=== PATIENT | female | born 1970 | race American Indian/Alaskan Native ===

== ENCOUNTER 2017-10-03 12:35 | Inpatient (IN) | payer BC ==
--- NOTE | 2017-10-03 13:56 | ED PDOC ---
Arrival/HPI - General Time Seen by Provider: 10/03/17 13:39 Historian: Patient - History of Present Illness Narrative History of Present Illness (Text): 10/03/17 13:53 A 46 year old female, whose past medical history includes lymphoma, last chemo session 1 week ago today, presents to the emergency department complaining of a fever since last night. Patient reports a temperature of 100.7. She notes speaking with her oncologist, who instructed her to come in for further evaluation. Patient notes a mild sore throat but denies any nausea, vomiting, abdominal pain, urinary symptoms, chest pain, shortness of breath, cough, congestion, rhinorrhea, rash or any other complaints. Patient denies any recent travel. Time/Duration: Other (last night) Context: Home Associated Symptoms (Text): 10/03/17 14:33 History of lymphoma with last chemotherapy one week ago today. The patient did receive Neupogen last week. Complains of a mild sore throat and a fever to 100.7 since last night. No cough congestion or URI. No abdominal pain nausea vomiting. No genitourinary symptoms. No rash. No travel or exposure. She spoke with her oncologist who directed her to the emergency department. Past Medical History - Provider Review Nursing Documentation Reviewed: Yes - Tetanus Immunization Tetanus Immunization: Unknown - Cardiac Hx Hypertension: Yes - Pulmonary Hx Asthma: Yes - Psychiatric Hx Depression: No Hx Emotional Abuse: No Hx Physical Abuse: No Hx Substance Use: No - Past Surgical History Past Surgical History: No Previous - Suicidal Assessment Feels Threatened In Home Enviroment: No Family/Social History - Physician Review Nursing Documentation Reviewed: Yes Family/Social History: No Known Family HX Smoking Status: Never Smoked Hx Alcohol Use: Yes Frequency of alcohol use: Socially Hx Substance Use: No Hx Substance Use Treatment: No Allergies/Home Meds Allergies/Adverse Reactions: Allergies shellfish derived Allergy (Verified 10/03/17 14:08) ANAPHYLAXIS Home Medications: Home Meds Medication Instructions Recorded Confirmed Valsartan [Valsartan] 1 tab PO DAILY 10/03/17 10/03/17 metFORMIN 500 mg PO DAILY 10/03/17 10/03/17 Review of Systems - Physician Review All systems were reviewed & negative as marked: Yes - Review of Systems Constitutional: Fevers ENT: Sore Throat. absent: Rhinorrhea, Sinus Congestion Respiratory: absent: SOB, Cough Cardiovascular: absent: Chest Pain Gastrointestinal: absent: Abdominal Pain, Nausea, Vomiting Genitourinary Female: absent: Dysuria, Frequency, Hematuria Skin: absent: Rash Physical Exam Vital Signs Temp Pulse Resp BP Pulse Ox 10/03/17 16:00 102 H 18 135/82 100 10/03/17 14:12 99.4 F 115 H 19 138/99 H 100 Appearance: Positive for: Well-Appearing, Non-Toxic, Comfortable Pain Distress: None Mental Status: Positive for: Alert and Oriented X 3 - Systems Exam Head: Present: Atraumatic, Normocephalic Pupils: Present: PERRL Extroacular Muscles: Present: EOMI Conjunctiva: Present: Normal Mouth: Present: Moist Mucous Membranes Pharnyx: Present: Other (mild pharyngeal injection) Neck: Present: Normal Range of Motion Respiratory/Chest: Present: Clear to Auscultation, Good Air Exchange. No: Respiratory Distress, Accessory Muscle Use Cardiovascular: Present: Regular Rate and Rhythm, Normal S1, S2, Tachycardic. No: Murmurs Abdomen: No: Tenderness, Distention, Peritoneal Signs Back: Present: Normal Inspection Upper Extremity: Present: Normal Inspection. No: Cyanosis, Edema Lower Extremity: Present: Normal Inspection. No: Edema Neurological: Present: GCS=15, CN II-XII Intact, Speech Normal Skin: Present: Warm, Dry, Normal Color. No: Rashes Psychiatric: Present: Alert, Oriented x 3, Normal Insight, Normal Concentration Medical Decision Making ED Course and Treatment: 10/03/17 13:53 Impression: A 46 year old female with a fever and mild sore throat. Plan: -- Chest xray -- EKG -- Labs -- Blood and Urine culture -- Urinalysis -- Reassess and disposition Progress Notes: 10/03/17 15:24 Chest one view shows no infiltrate effusion or cardiomegaly. 10/03/17 15:57 EKG shows sinus tachycardia rate approximately 110 with nonspecific T-wave changes and no acute changes. 10/03/17 18:24 Dr Knight requests hospitalist admit. Discussed with , who accepts to her service. - Lab Interpretations Lab Results: 10/03/17 16:00 10/03/17 16:00 Lab Results 10/03/17 16:00: Sodium 140, Chloride 99, Potassium 3.6, Carbon Dioxide 29, Anion Gap 15, BUN 15, Creatinine 0.8, Est GFR ( Amer) > 60, Est GFR (Non- Af Amer) > 60, Random Glucose 103, Calcium 8.9, Phosphorus 4.2, Magnesium 1.8, Total Bilirubin 1.2, AST 22, ALT 17, Alkaline Phosphatase 67, Total Protein 7.6 , Albumin 3.9, Globulin 3.6, Albumin/Globulin Ratio 1.1 10/03/17 16:00: pO2 35, VBG pH 7.40, VBG pCO2 47.0, VBG HCO3 29.1 H, VBG Total CO2 30.5 H, VBG O2 Sat (Calc) 71.1 H, VBG Base Excess 3.5 H, VBG Potassium 3.4 L , Sodium 135.0, Chloride 100.0, Glucose 107 H, Lactate 1.1, FiO2 21.0, Venous Blood Potassium 3.4 L 10/03/17 16:00: WBC 0.3 L* D, RBC 3.88, Hgb 10.1 L, Hct 30.6 L, MCV 78.9 L, MCH 26.0, MCHC 33.0, RDW 14.1, Plt Count 180, MPV 10.4, Gran % 4.0 L, Lymph % (Auto ) 44.0 H, Dunn % (Auto) 24.0 H, Eos % (Auto) 28.0 H, Baso % (Auto) 0.0, Gran # 0.01 L, Lymph # (Auto) 0.1 L, Dunn # (Auto) 0.1, Eos # (Auto) 0.1, Baso # (Auto ) 0.00, Corrected WBC (Man) Cancelled, Neutrophils % (Manual) Cancelled, Band Neutrophils % Cancelled, Lymphocytes % (Manual) Cancelled, Atypical Lymphs % Cancelled, Monocytes % (Manual) Cancelled, Eosinophils % (Manual) Cancelled, Basophils % (Manual) Cancelled, Metamyelocytes % Cancelled, Myelocytes % Cancelled, Promyelocytes % Cancelled, Nucleated RBC % Cancelled, Hypersegmented Polys Cancelled, Immature Lymphocytes Cancelled, Blast Cells Cancelled, Smudge Cells Cancelled, Toxic Granulation Cancelled, Dohle Bodies Cancelled, Amor Rods Cancelled, Platelet Evaluation Cancelled, Plt Clumps, EDTA Cancelled, Large Platelets Cancelled, Giant Platelets Cancelled, Polychromasia Cancelled, Hypochromasia Cancelled, Hyperchromasia Cancelled, Poikilocytosis (manual Cancelled, Basophilic Stippling Cancelled, Anisocytosis (manual) Cancelled, Microcytosis (manual) Cancelled, Macrocytosis (manual) Cancelled, Spherocytes Cancelled, Sickle Cells Cancelled, Target Cells Cancelled, Tear Drop Cells Cancelled, Ovalocytes Cancelled, Stomatocytes Cancelled, Helmet Cells Cancelled , [place] Rings Cancelled, [place] Cells Cancelled, Acanthocytes (Spur) Cancelled, Rouleaux Cancelled, Schistocytes Cancelled 10/03/17 15:18: Grp A Beta Strep Ag Negative 10/03/17 15:00: Urine Color Yellow, Urine Appearance Clear, Urine pH 6.0, Ur Specific [place] >= 1.030, Urine Protein >=300 H, Urine Glucose (UA) Negative, Urine Ketones Negative, Urine Blood Negative, Urine Nitrate Negative, Urine Bilirubin Negative, Urine Urobilinogen 1.0 H, Ur Leukocyte Esterase Negative, Urine RBC 0 - 2, Urine WBC 0 - 2, Ur Epithelial Cells 3 - 4, Urine Bacteria Mod I have reviewed the lab results: Yes - RAD Interpretation Radiology Orders: 10/03/17 14:34 CHEST PORTABLE [RAD] Stat - Medication Orders Current Medication Orders: Vancomycin HCl (Vancomycin 1gm) 1 gm in 250 mls @ 167 mls/hr IVPB STAT STA PRN Reason: Protocol Stop: 10/03/17 19:02 Discontinued Medications Piperacillin Sod/Tazobactam Sod (Zosyn 4.5 Gm In Ns 100ml) 4.5 gm in 100 mls @ 200 mls/hr IVPB STAT STA PRN Reason: Protocol Stop: 10/03/17 18:02 - Scribe Statement The provider has reviewed the documentation as recorded by the Christina Epstein Provider Scribe Attestation: All medical record entries made by the Scribe were at my direction and personally dictated by me. I have reviewed the chart and agree that the record accurately reflects my personal performance of the history, physical exam, medical decision making, and the department course for this patient. I have also personally directed, reviewed, and agree with the discharge instructions and disposition./ Disposition/Present on Arrival - Present on Arrival Any Indicators Present on Arrival: No History of DVT/PE: No History of Uncontrolled Diabetes: No Urinary Catheter: No History of Decub. Ulcer: No History Surgical Site Infection Following: None - Disposition Have Diagnosis and Disposition been Completed?: Yes Diagnosis: Neutropenic fever Disposition: HOSPITALIZED Disposition Time: 18:37 Patient Plan: Admission Condition: GOOD Referrals: Yohan Knight MD [Primary Care Provider] - Follow up with primary
--- NOTE | 2017-10-03 15:22 | RAD ---
HISTORY: Sepsis Patient COMPARISON: 07/16/2012 FINDINGS: LUNGS: No active pulmonary disease. PLEURA: No significant pleural effusion identified, no pneumothorax apparent. CARDIOVASCULAR: Normal. OSSEOUS STRUCTURES: No significant abnormalities. VISUALIZED UPPER ABDOMEN: Normal. OTHER FINDINGS: None. IMPRESSION: No active disease.
[2017-10-03 15:54] LABS: URINE BILIRUBIN NEGATIVE (NEGATIVE); URINE BLOOD NEGATIVE (NEGATIVE); URINE GLUCOSE (UA) NEGATIVE (NEGATIVE); URINE LEUKOCYTE ESTERASE NEGATIVE Leu/uL (NEGATIVE); URINE PROTEIN >=300 mg/dL (<30 mg/dL)
[2017-10-03 15:56] LABS: URINE APPEARANCE CLEAR (CLEAR); URINE COLOR YELLOW (YELLOW)
[2017-10-03 16:01] LABS: URINE RBC 0 - 2 /hpf (0-2); URINE WBC 0 - 2 /hpf (0-6)
[2017-10-03 16:03] LABS: URINE BACTERIA MOD (NEG)
[2017-10-03 16:32] LABS: VENOUS BLOOD GAS BASE EXCESS 3.5 mmol/L (0.0-2.0); VENOUS BLOOD GAS PO2 35 mm/Hg (30-55)
[2017-10-03 16:41] LABS: EOS # 0.1 (0.0-0.7); GRAN # 0.01 (1.4-6.5); HEMOGLOBIN 10.1 g/dL (12.0-16.0); LYMPH # 0.1 (1.2-3.4); MEAN CELL VOLUME 78.9 fl (80.0-105.0); MEAN PLATELET VOLUME 10.4 fl (7.0-11.0); MONO # 0.1 (0.1-0.6); RBC 3.88 10^6/uL (3.5-6.1); RED CELL DISTRIBUTION WIDTH 14.1 % (11.5-14.5)
[2017-10-03 16:46] LABS: ALB/GLOB RATIO 1.1 (1.1-1.8); ALBUMIN 3.9 g/dL (3.0-4.8); ALT/SGPT 17 U/L (7-56); AST/SGOT 22 U/L (14-36); BLOOD UREA NITROGEN 15 mg/dL (7-21); CALCIUM 8.9 mg/dL (8.4-10.5); GFR AFRICAN-AMERICAN > 60; GFR NON-AFRICAN AMERICAN > 60
--- NOTE | 2017-10-03 16:47 | CARD ---
APPROVED REPORT EKG Measurement Heart [id number] <Conclusion> Sinus tachycardia Nonspecific T wave abnormality Abnormal ECG
[2017-10-03 17:21] LABS: WHITE BLOOD COUNT 0.3 10^3/ul (4.5-11.0)
[2017-10-03] MEDS ORDERED: Vancomycin 1gm in NS 250ml 1 GM/250 ML BAG IVPB STA (17:33)
[2017-10-03] MEDS ORDERED: Piperacill/Tazo 4.5gm in NS 4.5 GM/100 ML BAG IVPB STA (17:33)
--- NOTE | 2017-10-03 18:48 | CP.PCM.HP ---
History of Present Illness - History of Present Illness History of Present Illness: Diamond Nance, PGY1, H&P for Dr Avalos: CC: fever, sore throat 46 year old female, with past medical history non-hodgkin lymphoma on chemotherapy (last chemo session 1 week ago today), HTN, DM, presents for fever 101.4 this AM. Pt states that she was in her usual state of health until this morning. She woke up with fever 101.4, also had some sore throat, mild headache , denies cough, chills, nausea, vomiting, congestion, rhinorrhea, neck stiffness /rigidity, cough, abdominal pain, diarrhea, hematuria, urinary frequency, melena , hematemesis, hematochezia. Reports mild dysuria. This afternoon, pt then noted a temp 100.7 and let her hemeonc know, who stated to come to ED. Denies recent travel or sick contacts. Pt received neupogen last week. PET scan done in 08/2017 showed no new lesions/masses. In ED, afebrile, BP stable, tachycardic 110s, wbc 0.3, ANC 12x10^3 neutropenic, hgb 10.1, BUN/Cr 15/0.8. Given neupogen, vanco and zosyn. 12 point ROS obtained and negative, except as per HPI. PMD: vielka Knight ONc: lilo Knight PMH: nonhodgkin lymphoma, HTN, HLD PSH: biopsies- lung in 05/2017, bronchoscopy 08/2016, portacath - right side ALl: shellfish FH: DM, HTN SH: Denies tobacco, recreational drug use. uses alcohol occasionally -wine. Lives with partner and 2 daughters (age 19, and 25) Home meds: valsartan, metformin Present on Admission - Present on Admission Any Indicators Present on Admission: No History of DVT/PE: No History of Uncontrolled Diabetes: No Urinary Catheter: No Decubitus Ulcer Present: No Review of Systems - Review of Systems All systems: reviewed and no additional remarkable complaints except Review of Systems: as per HPI Past Patient History - Infectious Disease Hx of Infectious Diseases: None - Tetanus Immunizations Tetanus Immunization: Unknown - Past Social History Smoking Status: Never Smoked - CARDIAC Hx Hypertension: Yes - PULMONARY Hx Asthma: Yes - ENDOCRINE/METABOLIC Hx Diabetes Mellitus Type 2: Yes - PSYCHIATRIC Hx Depression: No Hx Emotional Abuse: No Hx Physical Abuse: No Hx Substance Use: No - SURGICAL HISTORY Hx Surgeries: No Meds Allergies/Adverse Reactions: Allergies Allergy/AdvReac Type Severity Reaction Status Date / Time shellfish derived Allergy ANAPHYLAXIS Verified 10/03/17 14:08 Physical Exam - Constitutional Appears: Non-toxic, No Acute Distress - Head Exam Head Exam: ATRAUMATIC, NORMOCEPHALIC - Eye Exam Eye Exam: EOMI, PERRL. absent: Conjunctival injection, Nystagmus, Scleral icterus Pupil Exam: NORMAL ACCOMODATION, PERRL. absent: Irregular, Miosis, Mydriatic, Unequal Additional comments: + dry tongue - ENT Exam ENT Exam: Mucous Membranes Dry Additional comments: + mildly erythematous pharynx, no tonsillar exudates, - Neck Exam Neck exam: Positive for: Full Rom - Respiratory Exam Respiratory Exam: Clear to Auscultation Bilateral, NORMAL BREATHING PATTERN. absent: Accessory Muscle Use, Rhonchi, Wheezes, Stridor - Cardiovascular Exam Cardiovascular Exam: RRR, +S1, +S2. absent: Systolic Murmur - GI/Abdominal Exam GI & Abdominal Exam: Normal Bowel Sounds, Soft. absent: Distended, Firm, Guarding, Organomegaly, Pulsatile Mass, Rebound, Rigid, Tenderness - Extremities Exam Extremities exam: Positive for: normal inspection. Negative for: calf tenderness, pedal edema - Back Exam Back exam: NORMAL INSPECTION. absent: CVA tenderness (L), CVA tenderness (R) - Neurological Exam Neurological exam: Alert, Oriented x3 - Psychiatric Exam Psychiatric exam: Normal Affect, Normal Mood - Skin Skin Exam: Dry, Normal Color, Warm Results - Vital Signs Recent Vital Signs: Last Vital Signs Temp 99.4 F 10/03/17 14:12 Pulse 102 H 10/03/17 16:00 Resp 18 10/03/17 16:00 BP 135/82 10/03/17 16:00 Pulse Ox 100 10/03/17 16:00 - Labs Result Diagrams: 10/03/17 16:00 10/03/17 16:00 Labs: Laboratory Results - last 24 hr 10/03/17 10/03/17 10/03/17 15:00 15:18 16:00 WBC 0.3 L* D RBC 3.88 Hgb 10.1 L Hct 30.6 L MCV 78.9 L MCH 26.0 MCHC 33.0 RDW 14.1 Plt Count 180 MPV 10.4 Gran % 4.0 L Lymph % (Auto) 44.0 H [place] % (Auto) 24.0 H Eos % (Auto) 28.0 H Baso % (Auto) 0.0 Gran # 0.01 L Lymph # (Auto) 0.1 L [place] # (Auto) 0.1 Eos # (Auto) 0.1 Baso # (Auto) 0.00 Corrected WBC (Man) Cancelled Neutrophils % (Manual) Cancelled Band Neutrophils % Cancelled Lymphocytes % (Manual) Cancelled Atypical Lymphs % Cancelled Monocytes % (Manual) Cancelled Eosinophils % (Manual) Cancelled Basophils % (Manual) Cancelled Metamyelocytes % Cancelled Myelocytes % Cancelled Promyelocytes % Cancelled Nucleated RBC % Cancelled Hypersegmented Polys Cancelled Immature Lymphocytes Cancelled Blast Cells Cancelled Smudge Cells Cancelled Toxic Granulation Cancelled Dohle Bodies Cancelled Amor Rods Cancelled Platelet Evaluation Cancelled Plt Clumps, EDTA Cancelled Large Platelets Cancelled Giant Platelets Cancelled Polychromasia Cancelled Hypochromasia Cancelled Hyperchromasia Cancelled Poikilocytosis (manual Cancelled Basophilic Stippling Cancelled Anisocytosis (manual) Cancelled Microcytosis (manual) Cancelled Macrocytosis (manual) Cancelled Spherocytes Cancelled Sickle Cells Cancelled Target Cells Cancelled Tear Drop Cells Cancelled Ovalocytes Cancelled Stomatocytes Cancelled Helmet Cells Cancelled [place] Rings Cancelled [place] Cells Cancelled Acanthocytes (Spur) Cancelled Rouleaux Cancelled Schistocytes Cancelled pO2 VBG pH VBG pCO2 VBG HCO3 VBG Total CO2 VBG O2 Sat (Calc) VBG Base Excess VBG Potassium Sodium Chloride Glucose Lactate FiO2 Potassium Carbon Dioxide Anion Gap BUN Creatinine Est GFR ( Amer) Est GFR (Non-Af Amer) Random Glucose Calcium Phosphorus Magnesium Total Bilirubin AST ALT Alkaline Phosphatase Total Protein Albumin Globulin Albumin/Globulin Ratio Venous Blood Potassium Urine Color Yellow Urine Appearance Clear Urine pH 6.0 Ur Specific [place] >= 1.030 Urine Protein >=300 H Urine Glucose (UA) Negative Urine Ketones Negative Urine Blood Negative Urine Nitrate Negative Urine Bilirubin Negative Urine Urobilinogen 1.0 H Ur Leukocyte Esterase Negative Urine RBC 0 - 2 Urine WBC 0 - 2 Ur Epithelial Cells 3 - 4 Urine Bacteria Mod Grp A Beta Strep Ag Negative 10/03/17 10/03/17 16:00 16:00 WBC RBC Hgb Hct MCV MCH MCHC RDW Plt Count MPV Gran % Lymph % (Auto) [place] % (Auto) Eos % (Auto) Baso % (Auto) Gran # Lymph # (Auto) [place] # (Auto) Eos # (Auto) Baso # (Auto) Corrected WBC (Man) Neutrophils % (Manual) Band Neutrophils % Lymphocytes % (Manual) Atypical Lymphs % Monocytes % (Manual) Eosinophils % (Manual) Basophils % (Manual) Metamyelocytes % Myelocytes % Promyelocytes % Nucleated RBC % Hypersegmented Polys Immature Lymphocytes Blast Cells Smudge Cells Toxic Granulation Dohle Bodies Amor Rods Platelet Evaluation Plt Clumps, EDTA Large Platelets Giant Platelets Polychromasia Hypochromasia Hyperchromasia Poikilocytosis (manual Basophilic Stippling Anisocytosis (manual) Microcytosis (manual) Macrocytosis (manual) Spherocytes Sickle Cells Target Cells Tear Drop Cells Ovalocytes Stomatocytes Helmet Cells [place] Rings [place] Cells Acanthocytes (Spur) Rouleaux Schistocytes pO2 35 VBG pH 7.40 VBG pCO2 47.0 VBG HCO3 29.1 H VBG Total CO2 30.5 H VBG O2 Sat (Calc) 71.1 H VBG Base Excess 3.5 H VBG Potassium 3.4 L Sodium 135.0 140 Chloride 100.0 99 Glucose 107 H Lactate 1.1 FiO2 21.0 Potassium 3.6 Carbon Dioxide 29 Anion Gap 15 BUN 15 Creatinine 0.8 Est GFR ( Amer) > 60 Est GFR (Non-Af Amer) > 60 Random Glucose 103 Calcium 8.9 Phosphorus 4.2 Magnesium 1.8 Total Bilirubin 1.2 AST 22 ALT 17 Alkaline Phosphatase 67 Total Protein 7.6 Albumin 3.9 Globulin 3.6 Albumin/Globulin Ratio 1.1 Venous Blood Potassium 3.4 L Urine Color Urine Appearance Urine pH Ur Specific [place] Urine Protein Urine Glucose (UA) Urine Ketones Urine Blood Urine Nitrate Urine Bilirubin Urine Urobilinogen Ur Leukocyte Esterase Urine RBC Urine WBC Ur Epithelial Cells Urine Bacteria Grp A Beta Strep Ag Assessment & Plan - Assessment and Plan (Free Text) Assessment: 46 year old female with PMH nonHodgkin lymphoma (diagnosed 05/2017) on chemotherapy, HTN, DM, presents for neutropenic fever: Neutropenic fever: - ANC 12 x10^3, NCI risk category 2 neutropenia - neutropenic precautions - Vanc and zosyn given in ED - C/w Vanco and zosyn - UA, urine culture, throat culture, blood culture - CXR neg for infiltrates. - Neupogen given in ED - daily cbc with diff - EKG: s tachy 128. QTc 485 ms. - 1L NS bolus - IVF @100 - Dr Knight consulted. F/u recs. Anemia: - micorcytic - prev Hgb 9.7 - iron studies, b12, folate Hx of HTN: - BP stable - home med valsartan. will hold if SBP<120 - monitor Hx of DM: - ISS- med - Monitor - hold home metformin PPX: pepcid, scds HHD-carb consistent Case discussed with Dr Avalos. Diamond Nance, PGY1 - Date & Time Date: 10/03/17 Time: 19:56
--- NOTE | 2017-10-03 19:51 | CP.PCM.CON ---
History of Present Illness - History of Present Illness History of Present Illness: Infectious Disease Consultation: October 03, 2017 46 yo female presenting with fevers up to 100.7 F at home. Patient had chemotherapy one week ago and a dose of Neupogen. Her only other complaint is a sore throat. Patient states that she was in her normal state of health before the last 12 hours. The patient started chemotherapy in June 2017. She has had her influenza vaccine in February. Patient given Vancomycin and Zosyn for IV antibiotic coverage. Chest X-ray shows no active disease. Signs of mild dehydration. The patient does complain of a little dysuria. 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 Her daughters are 19 and 25. One is in college. Active Medications Famotidine (Pepcid) 40 mg PO HS LAVINIA Piperacillin Sod/Tazobactam Sod (Zosyn 3.375 In Ns 100ml) 100 mls @ 200 mls/hr IVPB Q6 LAVINIA PRN Reason: Protocol Stop: 10/04/17 06:29 Vancomycin HCl (Vancomycin 1gm) 1 gm in 250 mls @ 167 mls/hr IVPB DAILY LAVINIA PRN Reason: Protocol Sodium Chloride (Sodium Chloride 0.9%) 1,000 mls @ 100 mls/hr IV .Q10H LAVINIA Insulin Human Lispro (Humalog Med) 0 units SC ACHS LAVINIA PRN Reason: Protocol Valsartan (Diovan) 320 mg PO DAILY LAVINIA Family Hx: none given ROS: Fevers, Sore Throat No chest pain, abdominal pain, melena, hematuria, hematemesis, hematochezia, depression, anxiety, diarrhea, vision loss, hearing loss, loss of consciousness. Past Patient History - Infectious Disease Hx of Infectious Diseases: None - Tetanus Immunizations Tetanus Immunization: Unknown - Past Social History Smoking Status: Never Smoked - CARDIAC Hx Hypertension: Yes - PULMONARY Hx Asthma: Yes - ENDOCRINE/METABOLIC Hx Diabetes Mellitus Type 2: Yes - PSYCHIATRIC Hx Depression: No Hx Emotional Abuse: No Hx Physical Abuse: No Hx Substance Use: No - SURGICAL HISTORY Hx Surgeries: No Meds Allergies/Adverse Reactions: Allergies Allergy/AdvReac Type Severity Reaction Status Date / Time shellfish derived Allergy ANAPHYLAXIS Verified 10/03/17 14:08 - Medications Medications: Current Medications Piperacillin Sod/Tazobactam Sod (Zosyn 3.375 In Ns 100ml) 100 mls @ 200 mls/hr IVPB Q6 LAVINIA PRN Reason: Protocol Stop: 10/04/17 06:29 Vancomycin HCl (Vancomycin 1gm) 1 gm in 250 mls @ 167 mls/hr IVPB DAILY LAVIINA PRN Reason: Protocol Insulin Human Lispro (Humalog Med) 0 units SC ACHS LAVINIA PRN Reason: Protocol Results - Vital Signs Recent Vital Signs: Last Vital Signs Temp 99.4 F 10/03/17 14:12 Pulse 102 H 10/03/17 16:00 Resp 18 10/03/17 16:00 BP 135/82 10/03/17 16:00 Pulse Ox 100 10/03/17 16:00 - Labs Result Diagrams: 10/03/17 16:00 10/03/17 16:00 Assessment & Plan - Assessment and Plan (Free Text) Assessment: 46 yo AA female with Non-Hodgekin's Lymphoma presenting with sore throat and low grade fevers. The paitent has been started on IV Vancomycin and Zosyn. Allred cultures sent. Administer IV fluids for mild dehydration. Cannot rule out viral infection at this time. Supportive care. Case discussed with Dr. Jiang. Thank you for allowing me to participate in the care of the patient, we will follow with you.
[2017-10-03] MEDS ORDERED: Sodium Chloride 0.9% 500 ML IV STA (19:53)
[2017-10-03] MEDS ORDERED: Sodium Chloride 0.9% 1,000 ML IV STA (19:54)
[2017-10-03] MEDS: Sodium Chloride 0.9% 1,000 ML IV SCH (20:30)
[2017-10-03 21:41] LABS: IRON 21 ug/dL (45-180)
[2017-10-03 21:50] LABS: % IRON SATURATION 9 % (20-55); TOTAL IRON BINDING CAPACITY 232 ug/dL (265-497)
[2017-10-03 22:00] VITALS: BMI 27.8
[2017-10-03] MEDS: Insulin Lispro (humaLOG) MEDIUM Coverage SC SCH (22:18)
[2017-10-03] MEDS ORDERED: Metoprolol 1 mg/ml Inj IVP ONE (22:51)
[2017-10-03] MEDS: Piperacillin/Tazobact 3.375 gm 100 ML IVPB SCH (23:35)
[2017-10-04] MEDS: Piperacillin/Tazobact 3.375 gm 100 ML IVPB SCH ×6 (01:32→23:41)
[2017-10-04] MEDS: Sodium Chloride 0.9% 1,000 ML IV SCH (06:28)
[2017-10-04 06:31] LABS: EOS # 0.1 (0.0-0.7); EOS % 21.1 % (1.5-5.0); GRAN # 0.06 (1.4-6.5); GRAN % 15.7 % (50.0-68.0); HEMOGLOBIN 9.2 g/dL (12.0-16.0); LYMPH # 0.1 (1.2-3.4); LYMPH % 31.6 % (22.0-35.0); MEAN CELL VOLUME 79.5 fl (80.0-105.0); MEAN CORPUSCULAR HEMOGLOBIN 26.6 pg (25.0-35.0); MEAN CORPUSCULAR HGB CONC 33.5 g/dl (31.0-37.0); MEAN PLATELET VOLUME 10.7 fl (7.0-11.0); MONO # 0.1 (0.1-0.6); MONO % 31.6 % (1.0-6.0); RBC 3.46 10^6/uL (3.5-6.1); RED CELL DISTRIBUTION WIDTH 14.1 % (11.5-14.5)
[2017-10-04 06:38] LABS: ALB/GLOB RATIO 1.1 (1.1-1.8); ALBUMIN 3.6 g/dL (3.0-4.8); ALT/SGPT 20 U/L (7-56); AST/SGOT 20 U/L (14-36); BLOOD UREA NITROGEN 15 mg/dL (7-21); CALCIUM 8.7 mg/dL (8.4-10.5); GFR AFRICAN-AMERICAN > 60; GFR NON-AFRICAN AMERICAN 60
[2017-10-04 06:45] LABS: WHITE BLOOD COUNT 0.4 10^3/ul (4.5-11.0)
[2017-10-04] MEDS: Insulin Lispro (humaLOG) MEDIUM Coverage SC SCH ×4 (08:30→22:24)
[2017-10-04] MEDS: Vancomycin 1gm in NS 250ml 1 GM/250 ML BAG IVPB SCH (09:20)
[2017-10-04] MEDS: Benzocaine/Menthol (Cepacol) Lozenge MT SCH ×2 (09:41→13:00)
--- NOTE | 2017-10-04 10:07 | CP.PCM.PN ---
<Madai Roth - Last Filed: 10/04/17 12:38> Subjective - Date & Time of Evaluation Date of Evaluation: 10/04/17 Time of Evaluation: 09:25 - Subjective Subjective: IM progress note for Dr. Jiang-Madai Roth, PGY-1 Pt S & E at bedside at 0715 PT reports fevers, sore throat (usually occurs after chemo), insomnia, some dysuria yesterday. Denies hematuria, N & V, chills, other complaints. Objective - Vital Signs/Intake and Output Vital Signs (last 24 hours): Temp Pulse Resp BP Pulse Ox 100.5 F H 97 H 20 124/82 98 10/04/17 08:15 10/04/17 08:15 10/04/17 08:15 10/04/17 08:15 10/04/17 08:15 Intake and Output: 10/04/17 10/04/17 06:59 18:59 Intake Total 1360 Balance 1360 - Medications Medications: Current Medications Acetaminophen (Tylenol 325mg Tab) 650 mg PO Q4H PRN PRN Reason: Temperature Last Admin: 10/04/17 06:51 Dose: 650 mg Benzocaine/Menthol (Cepacol Sore Throat) 1 patrice MT Q4H LAVINIA Last Admin: 10/04/17 09:41 Dose: 1 patrice Famotidine (Pepcid) 40 mg PO HS LAVINIA Last Admin: 10/03/17 22:18 Dose: 40 mg Vancomycin HCl (Vancomycin 1gm) 1 gm in 250 mls @ 167 mls/hr IVPB DAILY [facility] PRN Reason: Protocol Last Admin: 10/04/17 09:20 Dose: 167 mls/hr Sodium Chloride (Sodium Chloride 0.9%) 1,000 mls @ 100 mls/hr IV .Q10H L[facility]INIA Last Admin: 10/04/17 06:28 Dose: 100 mls/hr Piperacillin Sod/Tazobactam Sod (Zosyn 3.375 In Ns 100ml) 100 mls @ 200 mls/hr IVPB Q6 [facility]IA PRN Reason: Protocol Last Admin: 10/04/17 06:26 Dose: 200 mls/hr Insulin Human Lispro (Humalog Med) 0 units SC ACHS L[facility]INIA PRN Reason: Protocol Last Admin: 05/15/18 08:30 Dose: Not Given Valsartan (Diovan) 320 mg PO DAILY [facility] Last Admin: 10/04/17 09:20 Dose: 320 mg - Labs Labs: 10/04/17 06:00 10/04/17 06:00 - Constitutional Appears: Non-toxic, No Acute Distress - Head Exam Head Exam: ATRAUMATIC, NORMAL INSPECTION, NORMOCEPHALIC - Eye Exam Eye Exam: EOMI, Normal appearance - ENT Exam ENT Exam: Mucous Membranes Moist, Normal Exam - Neck Exam Neck Exam: Full ROM, Normal Inspection - Respiratory Exam Respiratory Exam: Clear to Ausculation Bilateral, NORMAL BREATHING PATTERN - Cardiovascular Exam Cardiovascular Exam: REGULAR RHYTHM, +S1, +S2 - GI/Abdominal Exam GI & Abdominal Exam: Soft, Normal Bowel Sounds. absent: Tenderness - Back Exam Back Exam: NORMAL INSPECTION - Neurological Exam Neurological Exam: Alert, Awake, CN II-XII Intact, Oriented x3 - Psychiatric Exam Psychiatric exam: Normal Affect, Normal Mood - Skin Skin Exam: Dry, Intact, Normal Color, Warm. absent: Diaphoretic Assessment and Plan - Assessment and Plan (Free Text) Assessment: 46F w/PMH sig for NHL w/neutropenic fever Plan: Neutropenic fever FU ANC Neutropenic precautions Cont Vanc Cont Zosyn FU cx FU strep Tylenol PRN Cepacol PRN NS@100 Daily labs Onc consulted ID following-recs for IVF, Vanco, Zosyn, FU cx, supportive care Microcytic Anemia Monitor H/H Fe low -21 TIBC low-232 % sat low-9 FU ferritin Onc following DM ISS Accuchecks HHD/CCHO diet Sore throat Magic mouthwash PRN HTN BP stable Home med Valsartan- hold for SBP <120 Monitor GI/DVT ppx Pepcid SCDs DW attending Ira, PGY-1 <Jeannette Jiang - Last Filed: 10/04/17 15:21> Objective - Vital Signs/Intake and Output Vital Signs (last 24 hours): Temp Pulse Resp BP Pulse Ox 100.5 F H 97 H 20 124/82 98 10/04/17 08:15 10/04/17 08:15 10/04/17 08:15 10/04/17 08:15 10/04/17 08:15 Intake and Output: 10/04/17 10/04/17 06:59 18:59 Intake Total 1360 Balance 1360 - Medications Medications: Current Medications Acetaminophen (Tylenol 325mg Tab) 650 mg PO Q4H PRN PRN Reason: Temperature Last Admin: 10/04/17 06:51 Dose: 650 mg Benzocaine/Menthol (Cepacol Sore Throat) 1 patrice MT Q4H PRN PRN Reason: Pain, Mild (1-3) Al Hydrox/Mg Hydrox/Simethicone 30 ml/Diphenhydramine HCl 75 mg/Lidocaine 30 ml 0 ml PO Q2H PRN PRN Reason: Mouth/Throat Pain Famotidine (Pepcid) 40 mg PO HS [facility]INIA Last Admin: 10/03/17 22:18 Dose: 40 mg Vancomycin HCl (Vancomycin 1gm) 1 gm in 250 mls @ 167 mls/hr IVPB DAILY [facility] PRN Reason: Protocol Last Admin: 10/04/17 09:20 Dose: 167 mls/hr Sodium Chloride (Sodium Chloride 0.9%) 1,000 mls @ 100 mls/hr IV .Q10H LAVINIA Last Admin: 10/04/17 06:28 Dose: 100 mls/hr Piperacillin Sod/Tazobactam Sod (Zosyn 3.375 In Ns 100ml) 100 mls @ 200 mls/hr IVPB Q6 [facility] PRN Reason: Protocol Last Admin: 10/04/17 13:46 Dose: 200 mls/hr Insulin Human Lispro (Humalog Med) 0 units SC ACHS LAVINIA PRN Reason: Protocol Last Admin: 10/04/17 11:37 Dose: Not Given Valsartan (Diovan) 320 mg PO DAILY L[facility]INIA Last Admin: 10/04/17 09:20 Dose: 320 mg - Labs Labs: 10/04/17 06:00 10/04/17 06:00 Attending/Attestation - Attestation I have personally seen and examined this patient.: Yes I have fully participated in the care of the patient.: Yes I have reviewed all pertinent clinical information, including history, physical exam and plan: Yes Notes (Text): 10/04/17 15:14 attending note; Patient seen and examined with resident. Complaining of mild sore throat. Patient had MAXIMUM TEMPERATURE of 104 last night. Patient is a 46 year old female, with past medical history non-hodgkin lymphoma on chemotherapy (last chemo session 1 week ago today), HTN, DM, presents for fever. neutropenic fever; started on IV vancomycin and Zosyn. Strep throat is negative. Blood culture, urine culture is pending. Chest x-rays negative for pneumonia. ID evaluation Appreciated. Neutropenia; on neutropenic precaution. Got 1 dose of Granix yesterday. WBC Count improved from 0.3-0.4. One dose of Granix ordered today. iron deficiency anemia; will follow-up with oncology. might need IV iron. Monitor closely. Upon discharge the patient will follow-up with PMD Dr. Knight.
[2017-10-04] MEDS ORDERED: Aluminum Hydroxide/Magnesium 30 ML, DiphenhydrAMINE 75 MG, Lidocaine 2% Viscous 30 ML PO PRN (11:55)
[2017-10-04 13:32] LABS: FOLATE 9.8 ng/mL
--- NOTE | 2017-10-04 15:35 | CP.PCM.CON ---
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 The patient has been receiving R -CHOP chemotherapy which was last given 1 week ago. She called my office yesterday complaining of a fever of 101F and was instructed to report to the ER immediately. In the ER she was found to be severely neutropenic. She is currently on antibiotics and reports to feeling better. She denies further fevers. Past medical history: HTN, HL, NHL Past surgical history: Portacath Family history: Denies hematologic and oncologic problems Social history: Denies tobacco, alcohol, and illicit drug use. Allergies: Shellfish Review of systems: All remaining review of systems including HEENT, cardiovascular, respiratory, gastrointestinal, genitourinary, musculoskeletal, dermatologic, neurologic, and psychiatric are negative unless mentioned in the HPI. Past Patient History - Infectious Disease Hx of Infectious Diseases: None - Tetanus Immunizations Tetanus Immunization: Unknown - Past Social History Smoking Status: Never Smoked - CARDIAC Hx Hypertension: Yes - PULMONARY Hx Asthma: Yes - NEUROLOGICAL Hx Neurological Disorder: No Hx Alzheimer's Disease: No HX Cerebrovascular Accident: No Hx Dementia: No Hx Dizziness: No Hx Meningitis: No Hx Migraine: No Hx Parkinson's Disease: No Hx Seizures: No Hx Transient Ischemic Attacks (TIA): No - HEENT Hx HEENT Problems: Yes Hx Blind: No Hx Cataracts: No Hx Deafness: No Hx Difficulty Chewing: Yes (full upper and partial lower dentures) Hx Epistaxis: No Hx Glaucoma: No Hx Macular Degeneration: No - RENAL Hx Chronic Kidney Disease: Yes Hx Dialysis: No Hx Kidney Stones: Yes Hx Neurogenic Bladder: No Hx Pyelonephritis: No Hx Renal (Kidney) Cancer: No Hx Renal Failure: No - ENDOCRINE/METABOLIC Hx Diabetes Mellitus Type 2: Yes - HEMATOLOGICAL/ONCOLOGICAL Hx Blood Disorders: Yes Hx Anemia: Yes Hx Cancer: Yes (non hodgkins lymphoma) Hx Chemotherapy: Yes (09/26/17) Hx Cirrhosis: No Hx Hemophilia: No Hx Hepatitis A: No Hx Hepatitis B: No Hx Hepatitis C: No Hx Human Immunodeficiency Virus (HIV): No Hx Metastesis: No Hx Shingles: No Hx Sickle Cell Disease: No Hx Unexplained Bleeding: No - INTEGUMENTARY Hx Dermatological Problems: No Hx Basil Cell: No Hx Eczema: No Hx Melanoma: No Hx Psoriasis: No Hx Squamous Cell: No - MUSCULOSKELETAL/RHEUMATOLOGICAL Hx Musculoskeletal Disorders: No Hx Arthritis: No Hx Back Pain: No Hx Degenerative Joint Disease: No Hx Falls: No Hx Fractures: No Hx Gout: No Hx Herniated Disk: No Hx Myasthenia Gravis: No Hx Osteoarthritis: No Hx Osteomyelitis: No Hx Osteoporosis: No Hx Rhabdomyolysis: No Hx Spinal Stenosis: No Hx Unsteady Gait: No - GASTROINTESTINAL Hx Gastrointestinal Disorders: Yes Hx Colostomy: No Hx Crohn's Disease: No Hx Diverticulitis: No Hx Gall Bladder Disease: No Hx Gastroesophageal Reflux: Yes Hx Ileostomy: No Hx Liver Failure: No Hx Pancreatitis: No Hx Ulcer: No - GENITOURINARY/GYNECOLOGICAL Hx Genitourinary Disorders: Yes Hx Hematuria: No Hx Incontinence: No Hx Sexually Transmitted Disorders: No Hx Urinary Tract Infection: Yes - PSYCHIATRIC Hx Depression: No Hx Emotional Abuse: No Hx Physical Abuse: No Hx Substance Use: No - SURGICAL HISTORY Hx Surgeries: No Meds Allergies/Adverse Reactions: Allergies Allergy/AdvReac Type Severity Reaction Status Date / Time shellfish derived Allergy ANAPHYLAXIS Verified 10/03/17 14:08 - Medications Medications: Current Medications Acetaminophen (Tylenol 325mg Tab) 650 mg PO Q4H PRN PRN Reason: Temperature Last Admin: 10/04/17 06:51 Dose: 650 mg Benzocaine/Menthol (Cepacol Sore Throat) 1 patrice MT Q4H PRN PRN Reason: Pain, Mild (1-3) Al Hydrox/Mg Hydrox/Simethicone 30 ml/Diphenhydramine HCl 75 mg/Lidocaine 30 ml 0 ml PO Q2H PRN PRN Reason: Mouth/Throat Pain Famotidine (Pepcid) 40 mg PO HS LAVINIA Last Admin: 10/03/17 22:18 Dose: 40 mg Vancomycin HCl (Vancomycin 1gm) 1 gm in 250 mls @ 167 mls/hr IVPB DAILY L[facility]INIA PRN Reason: Protocol Last Admin: 10/04/17 09:20 Dose: 167 mls/hr Sodium Chloride (Sodium Chloride 0.9%) 1,000 mls @ 100 mls/hr IV .Q10H L[facility]INIA Last Admin: 10/04/17 06:28 Dose: 100 mls/hr Piperacillin Sod/Tazobactam Sod (Zosyn 3.375 In Ns 100ml) 100 mls @ 200 mls/hr IVPB Q6 [facility]IA PRN Reason: Protocol Last Admin: 10/04/17 13:46 Dose: 200 mls/hr Insulin Human Lispro (Humalog Med) 0 units SC ACHS LAVINIA PRN Reason: Protocol Last Admin: 10/04/17 11:37 Dose: Not Given Valsartan (Diovan) 320 mg PO DAILY [facility] Last Admin: 10/04/17 09:20 Dose: 320 mg Physical Exam - Head Exam Head Exam: ATRAUMATIC - Eye Exam Eye Exam: Normal appearance - ENT Exam ENT Exam: Mucous Membranes Dry - Respiratory Exam Respiratory Exam: NORMAL BREATHING PATTERN - Cardiovascular Exam Cardiovascular Exam: +S1, +S2 - GI/Abdominal Exam GI & Abdominal Exam: Normal Bowel Sounds - Extremities Exam Extremities exam: Positive for: normal inspection - Neurological Exam Neurological exam: Oriented x3 - Psychiatric Exam Psychiatric exam: Normal Affect, Normal Mood - Skin Skin Exam: Warm Results - Vital Signs Recent Vital Signs: Last Vital Signs Temp 100.5 F H 10/04/17 08:15 Pulse 97 H 10/04/17 08:15 Resp 20 10/04/17 08:15 BP 124/82 10/04/17 08:15 Pulse Ox 98 10/04/17 08:15 - Labs Result Diagrams: 10/04/17 06:00 10/04/17 06:00 Labs: Laboratory Results - last 24 hr 10/03/17 10/04/17 10/04/17 22:07 06:00 06:00 WBC 0.4 L* D RBC 3.46 L Hgb 9.2 L Hct 27.5 L MCV 79.5 L MCH 26.6 MCHC 33.5 RDW 14.1 Plt Count 149 MPV 10.7 Gran % 15.7 L Lymph % (Auto) 31.6 Mcdonough % (Auto) 31.6 H Eos % (Auto) 21.1 H Baso % (Auto) 0.0 Gran # 0.06 L Lymph # (Auto) 0.1 L Mcdonough # (Auto) 0.1 Eos # (Auto) 0.1 Baso # (Auto) 0.00 Corrected WBC (Man) Cancelled Neutrophils % (Manual) Cancelled Band Neutrophils % Cancelled Lymphocytes % (Manual) Cancelled Atypical Lymphs % Cancelled Monocytes % (Manual) Cancelled Eosinophils % (Manual) Cancelled Basophils % (Manual) Cancelled Metamyelocytes % Cancelled Myelocytes % Cancelled Promyelocytes % Cancelled Nucleated RBC % Cancelled Hypersegmented Polys Cancelled Immature Lymphocytes Cancelled Blast Cells Cancelled Smudge Cells Cancelled Toxic Granulation Cancelled Dohle Bodies Cancelled Amor Rods Cancelled Platelet Evaluation Cancelled Plt Clumps, EDTA Cancelled Large Platelets Cancelled Giant Platelets Cancelled Polychromasia Cancelled Hypochromasia Cancelled Hyperchromasia Cancelled Poikilocytosis (manual Cancelled Basophilic Stippling Cancelled Anisocytosis (manual) Cancelled Microcytosis (manual) Cancelled Macrocytosis (manual) Cancelled Spherocytes Cancelled Sickle Cells Cancelled Target Cells Cancelled Tear Drop Cells Cancelled Ovalocytes Cancelled Stomatocytes Cancelled Helmet Cells Cancelled [place] Rings Cancelled [place] Cells Cancelled Acanthocytes (Spur) Cancelled Rouleaux Cancelled Schistocytes Cancelled Sodium 142 Potassium 3.8 Chloride 105 Carbon Dioxide 26 Anion Gap 15 BUN 15 Creatinine 1.0 Est GFR ( Amer) > 60 Est GFR (Non-Af Amer) 60 POC Glucose (mg/dL) 211 H Random Glucose 103 Calcium 8.7 Phosphorus 4.5 Magnesium 1.9 Total Bilirubin 1.1 AST 20 ALT 20 Alkaline Phosphatase 58 Total Protein 7.0 Albumin 3.6 Globulin 3.4 Albumin/Globulin Ratio 1.1 10/04/17 10/04/17 08:25 11:35 WBC RBC Hgb Hct MCV MCH MCHC RDW Plt Count MPV Gran % Lymph % (Auto) Mcdonough % (Auto) Eos % (Auto) Baso % (Auto) Gran # Lymph # (Auto) Mcdonough # (Auto) Eos # (Auto) Baso # (Auto) Corrected WBC (Man) Neutrophils % (Manual) Band Neutrophils % Lymphocytes % (Manual) Atypical Lymphs % Monocytes % (Manual) Eosinophils % (Manual) Basophils % (Manual) Metamyelocytes % Myelocytes % Promyelocytes % Nucleated RBC % Hypersegmented Polys Immature Lymphocytes Blast Cells Smudge Cells Toxic Granulation Dohle Bodies Amor Rods Platelet Evaluation Plt Clumps, EDTA Large Platelets Giant Platelets Polychromasia Hypochromasia Hyperchromasia Poikilocytosis (manual Basophilic Stippling Anisocytosis (manual) Microcytosis (manual) Macrocytosis (manual) Spherocytes Sickle Cells Target Cells Tear Drop Cells Ovalocytes Stomatocytes Helmet Cells [place] Rings [place] Cells Acanthocytes (Spur) Rouleaux Schistocytes Sodium Potassium Chloride Carbon Dioxide Anion Gap BUN Creatinine Est GFR ( Amer) Est GFR (Non-Af Amer) POC Glucose (mg/dL) 118 H 114 H Random Glucose Calcium Phosphorus Magnesium Total Bilirubin AST ALT Alkaline Phosphatase Total Protein Albumin Globulin Albumin/Globulin Ratio Assessment & Plan (1) Neutropenic fever Assessment and Plan: secondary to chemotherapy on IV antibiotics GCSF growth factor support until ANC > 500 Status: Acute (2) Anemia Assessment and Plan: chronic disease from malignancy and chemotherapy effect no iron deficiency Status: Acute (3) Diffuse large B cell lymphoma Assessment and Plan: stage IV on chemotherapy with [facility] outpatient treatment Thank you for this interesting consult. Status: Acute
--- NOTE | 2017-10-04 18:36 | CP.PCM.PN ---
Subjective - Date & Time of Evaluation Date of Evaluation: 10/04/17 Time of Evaluation: 15:30 - Subjective Subjective: Infectious Disease Follow Up: October 04, 2017 46 yo female presenting with fevers up to 100.7 F at home. Patient had chemotherapy one week ago and a dose of Neupogen. Her only other complaint is a sore throat. Patient states that she was in her normal state of health before the last 12 hours. The patient started chemotherapy in June 2017. She has had her influenza vaccine in February. Patient given Vancomycin and Zosyn for IV antibiotic coverage. Chest X-ray shows no active disease. Signs of mild dehydration. The patient does complain of a little dysuria. Overnight, the patient had fevers up to 104.5 F. On Vancomycin and Zosyn still. Objective - Vital Signs/Intake and Output Vital Signs (last 24 hours): Temp Pulse Resp BP Pulse Ox 100.3 F H 104 H 20 156/120 H 98 10/04/17 16:37 10/04/17 16:37 10/04/17 16:37 10/04/17 16:37 10/04/17 16:37 Intake and Output: 10/04/17 10/04/17 06:59 18:59 Intake Total 1360 Balance 1360 - Medications Medications: Current Medications Acetaminophen (Tylenol 325mg Tab) 650 mg PO Q4H PRN PRN Reason: Temperature Last Admin: 10/04/17 06:51 Dose: 650 mg Benzocaine/Menthol (Cepacol Sore Throat) 1 patrice MT Q4H PRN PRN Reason: Pain, Mild (1-3) Al Hydrox/Mg Hydrox/Simethicone 30 ml/Diphenhydramine HCl 75 mg/Lidocaine 30 ml 0 ml PO Q2H PRN PRN Reason: Mouth/Throat Pain Famotidine (Pepcid) 40 mg PO HS LAVINIA Last Admin: 10/03/17 22:18 Dose: 40 mg Vancomycin HCl (Vancomycin 1gm) 1 gm in 250 mls @ 167 mls/hr IVPB DAILY LAVINIA PRN Reason: Protocol Last Admin: 10/04/17 09:20 Dose: 167 mls/hr Sodium Chloride (Sodium Chloride 0.9%) 1,000 mls @ 100 mls/hr IV .Q10H [facility]IA Last Admin: 10/04/17 06:28 Dose: 100 mls/hr Piperacillin Sod/Tazobactam Sod (Zosyn 3.375 In Ns 100ml) 100 mls @ 200 mls/hr IVPB Q6 [facility]IA PRN Reason: Protocol Last Admin: 10/04/17 17:58 Dose: 200 mls/hr Insulin Human Lispro (Humalog Med) 0 units SC ACHS LAVINIA PRN Reason: Protocol Last Admin: 10/04/17 11:37 Dose: Not Given Valsartan (Diovan) 320 mg PO DAILY [facility] Last Admin: 10/04/17 09:20 Dose: 320 mg - Labs Labs: 10/04/17 06:00 10/04/17 06:00 - Constitutional Appears: Non-toxic, No Acute Distress, Chronically Ill - Head Exam Head Exam: ATRAUMATIC, NORMOCEPHALIC - Eye Exam Eye Exam: EOMI, PERRL Pupil Exam: NORMAL ACCOMODATION, PERRL - ENT Exam ENT Exam: Mucous Membranes Moist, Normal External Ear Exam, TM's Normal Bilaterally - Neck Exam Neck Exam: Full ROM, Normal Inspection - Respiratory Exam Respiratory Exam: Clear to Ausculation Bilateral, NORMAL BREATHING PATTERN. absent: Rales, Rhonchi, Wheezes - Cardiovascular Exam Cardiovascular Exam: REGULAR RHYTHM, RRR, +S1, +S2 - GI/Abdominal Exam GI & Abdominal Exam: Soft, Normal Bowel Sounds. absent: Distended, Tenderness - Extremities Exam Extremities Exam: Full ROM, Normal Inspection - Neurological Exam Neurological Exam: Alert, Awake, CN II-XII Intact, Oriented x3 - Psychiatric Exam Psychiatric exam: Normal Affect, Normal Mood - Skin Skin Exam: Intact, Normal Color Assessment and Plan - Assessment and Plan (Free Text) Assessment: 46 yo AA female with Non-Hodgekin's Lymphoma presenting with sore throat and low grade fevers. The paitent has been started on IV Vancomycin and Zosyn. Allred cultures sent. Administer IV fluids for mild dehydration. Cannot rule out viral infection at this time. Supportive care. Fevers last night up to 104.5 F. Check for Influenza. Case discussed with Dr. Jiang and Dr. Knight. Thank you for allowing me to participate in the care of the patient, we will follow with you.
[2017-10-04] MEDS: Benzocaine/Menthol (Cepacol) Lozenge MT PRN (22:29)
[2017-10-05] MEDS: Piperacillin/Tazobact 3.375 gm 100 ML IVPB SCH ×4 (05:29→23:09)
[2017-10-05 06:36] LABS: BASO # 0.01 K/mm3 (0.0-2.0); BASO % 1.2 % (0.0-3.0); EOS # 0.1 (0.0-0.7); GRAN % 36.2 % (50.0-68.0); HEMOGLOBIN 8.4 g/dL (12.0-16.0); LYMPH # 0.2 (1.2-3.4); LYMPH % 19.3 % (22.0-35.0); MEAN CELL VOLUME 79.9 fl (80.0-105.0); MEAN CORPUSCULAR HEMOGLOBIN 25.9 pg (25.0-35.0); MEAN CORPUSCULAR HGB CONC 32.4 g/dl (31.0-37.0); MONO # 0.3 (0.1-0.6); MONO % 31.3 % (1.0-6.0); PLATELET COUNT 111 10^3/uL (120.0-450.0); RBC 3.24 10^6/uL (3.5-6.1); RED CELL DISTRIBUTION WIDTH 13.9 % (11.5-14.5)
[2017-10-05 07:21] LABS: ALBUMIN 3.3 g/dL (3.0-4.8); ALT/SGPT 20 U/L (7-56); AST/SGOT 23 U/L (14-36); BLOOD UREA NITROGEN 11 mg/dL (7-21); CALCIUM 8.7 mg/dL (8.4-10.5); GFR AFRICAN-AMERICAN > 60; GFR NON-AFRICAN AMERICAN 60
[2017-10-05 07:25] LABS: WHITE BLOOD COUNT 0.8 10^3/ul (4.5-11.0)
[2017-10-05] MEDS: Insulin Lispro (humaLOG) MEDIUM Coverage SC SCH ×4 (08:08→22:00)
[2017-10-05 08:25] LABS: BAND 8 % (0-2); EOSINOPHIL 22 % (0.0-3.0); LYMPHOCYTE 28 % (22.0-35.0); MONOCYTE 26 % (1.0-6.0); NEUTROPHIL 16 % (50.0-70.0); PLATELET ESTIMATE LOW (NORMAL)
[2017-10-05 08:26] LABS: ANISOCYTOSIS SLIGHT; HYPOCHROMIA SLIGHT; MICROCYTOSIS SLIGHT
[2017-10-05 08:29] VITALS: O2SAT 99
[2017-10-05] MEDS: Vancomycin 1gm in NS 250ml 1 GM/250 ML BAG IVPB SCH (10:05)
[2017-10-05] MEDS: Benzocaine/Menthol (Cepacol) Lozenge MT PRN (10:10)
--- NOTE | 2017-10-05 10:43 | CP.PCM.PN ---
<Madai Roth - Last Filed: 10/05/17 14:34> Subjective - Date & Time of Evaluation Date of Evaluation: 10/05/17 Time of Evaluation: 10:00 - Subjective Subjective: IM progress note for Dr. Jiang-Madai Roth, PGY-1 Pt S & E at bedside at 0950 Pt reports headache overnight, some diaphoresis. Denies N & V, F & C, sore throat. Tolerating diet. Ambulating around room. Pt did not know she had to ask for magic mouthwash. Objective - Vital Signs/Intake and Output Vital Signs (last 24 hours): Temp Pulse Resp BP Pulse Ox 98 F 82 19 130/86 99 10/05/17 08:28 10/05/17 08:28 10/05/17 08:28 10/05/17 08:28 10/05/17 08:28 Intake and Output: 10/05/17 10/05/17 06:59 18:59 Intake Total 960 240 Balance 960 240 - Medications Medications: Current Medications Acetaminophen (Tylenol 325mg Tab) 650 mg PO Q4H PRN PRN Reason: Temperature Last Admin: 10/05/17 02:00 Dose: 650 mg Benzocaine/Menthol (Cepacol Sore Throat) 1 patrice MT Q4H PRN PRN Reason: Pain, Mild (1-3) Last Admin: 10/05/17 10:10 Dose: 1 patrice Al Hydrox/Mg Hydrox/Simethicone 30 ml/Diphenhydramine HCl 75 mg/Lidocaine 30 ml 0 ml PO Q2H PRN PRN Reason: Mouth/Throat Pain Famotidine (Pepcid) 40 mg PO HS [facility] Last Admin: 10/04/17 22:25 Dose: 40 mg Vancomycin HCl (Vancomycin 1gm) 1 gm in 250 mls @ 167 mls/hr IVPB DAILY [facility] PRN Reason: Protocol Last Admin: 10/05/17 10:05 Dose: 167 mls/hr Sodium Chloride (Sodium Chloride 0.9%) 1,000 mls @ 100 mls/hr IV .Q10H [facility] Last Admin: 10/04/17 06:28 Dose: 100 mls/hr Piperacillin Sod/Tazobactam Sod (Zosyn 3.375 In Ns 100ml) 100 mls @ 200 mls/hr IVPB Q6 [facility] PRN Reason: Protocol Last Admin: 10/05/17 05:29 Dose: 200 mls/hr Insulin Human Lispro (Humalog Med) 0 units SC ACHS [facility] PRN Reason: Protocol Last Admin: 10/05/17 08:08 Dose: Not Given Valsartan (Diovan) 320 mg PO DAILY [facility] Last Admin: 10/05/17 10:05 Dose: 320 mg - Labs Labs: 10/05/17 06:00 10/05/17 06:00 - Constitutional Appears: Non-toxic, No Acute Distress - Head Exam Head Exam: ATRAUMATIC, NORMAL INSPECTION, NORMOCEPHALIC - Eye Exam Eye Exam: EOMI, Normal appearance - ENT Exam ENT Exam: Mucous Membranes Moist - Neck Exam Neck Exam: Full ROM, Normal Inspection - Respiratory Exam Respiratory Exam: Clear to Ausculation Bilateral, NORMAL BREATHING PATTERN - Cardiovascular Exam Cardiovascular Exam: REGULAR RHYTHM, +S1, +S2 - GI/Abdominal Exam GI & Abdominal Exam: Soft, Normal Bowel Sounds - Extremities Exam Extremities Exam: Normal Inspection - Back Exam Back Exam: NORMAL INSPECTION - Neurological Exam Neurological Exam: Alert, Awake, CN II-XII Intact, Oriented x3 - Psychiatric Exam Psychiatric exam: Normal Affect, Normal Mood - Skin Skin Exam: Dry, Intact, Normal Color, Warm Assessment and Plan - Assessment and Plan (Free Text) Assessment: 46F w/diffuse large B cell lymphoma on R-CHOP therapy 1 week ago admitted for neutropenic fever- improving Plan: Neutropenic fevers in setting of diffuse large B cell lymphoma ANC 192 Neutropenic precautions Cont Vanc Cont Zosyn Tylenol PRN Cepacol PRN Magic mouth wash PRN NS@100 Daily labs Urine cx neg Strep neg Blood cx neg x 24H Onc following- goal ANC >500, GSF until then, on RCHOP therapy (Rituximab, Cyclophosphamide, Doxorubicin (hydroxydaunomycin), vincristine (Oncovin ) P prednisolone ID following Microcytic Anemia Monitor H/H Hgb 8.4 from 9.2 Fe low -21 TIBC low-232 % sat low-9 Ferritin 386 B12 898 Folate 9.8 Onc following DM ISS Accuchecks HHD/CCHO diet Sore throat Magic mouthwash PRN Cepacol PRN HTN BP stable Home med Valsartan- hold for SBP <120 Monitor GI/DVT ppx Pepcid SCDs DW attending Ira, PGY-1 <ZuriJeannette park - Last Filed: 10/05/17 16:26> Objective - Vital Signs/Intake and Output Vital Signs (last 24 hours): Temp Pulse Resp BP Pulse Ox 98 F 103 H 19 130/86 99 10/05/17 08:28 10/05/17 10:00 10/05/17 08:28 10/05/17 08:28 10/05/17 08:28 Intake and Output: 10/05/17 10/05/17 06:59 18:59 Intake Total 960 1080 Balance 960 1080 - Medications Medications: Current Medications Acetaminophen (Tylenol 325mg Tab) 650 mg PO Q4H PRN PRN Reason: Temperature Last Admin: 10/05/17 02:00 Dose: 650 mg Benzocaine/Menthol (Cepacol Sore Throat) 1 patrice MT Q4H PRN PRN Reason: Pain, Mild (1-3) Last Admin: 10/05/17 10:10 Dose: 1 patrice Al Hydrox/Mg Hydrox/Simethicone 30 ml/Diphenhydramine HCl 75 mg/Lidocaine 30 ml 0 ml PO Q2H PRN PRN Reason: Mouth/Throat Pain Last Admin: 10/05/17 10:47 Dose: 30 ml Famotidine (Pepcid) 40 mg PO HS [facility]IA Last Admin: 10/04/17 22:25 Dose: 40 mg Vancomycin HCl (Vancomycin 1gm) 1 gm in 250 mls @ 167 mls/hr IVPB DAILY [facility] PRN Reason: Protocol Last Admin: 10/05/17 10:05 Dose: 167 mls/hr Sodium Chloride (Sodium Chloride 0.9%) 1,000 mls @ 100 mls/hr IV .Q10H [facility] Last Admin: 10/05/17 12:18 Dose: 100 mls/hr Piperacillin Sod/Tazobactam Sod (Zosyn 3.375 In Ns 100ml) 100 mls @ 200 mls/hr IVPB Q6 [facility] PRN Reason: Protocol Last Admin: 10/05/17 12:17 Dose: 200 mls/hr Insulin Human Lispro (Humalog Med) 0 units SC ACHS L[facility]IA PRN Reason: Protocol Last Admin: 10/05/17 12:20 Dose: 1 units Valsartan (Diovan) 320 mg PO DAILY [facility] Last Admin: 10/05/17 10:05 Dose: 320 mg - Labs Labs: 10/05/17 06:00 10/05/17 06:00 Attending/Attestation - Attestation I have personally seen and examined this patient.: Yes I have fully participated in the care of the patient.: Yes I have reviewed all pertinent clinical information, including history, physical exam and plan: Yes Notes (Text): 10/05/17 16:24 attending note; Patient seen and examined with resident. Complaining of mild sore throat. Patient is afebrile and nontoxic. Patient is a 46 year old female, with past medical history non-hodgkin lymphoma on chemotherapy , HTN, DM 's admitted with neutropenic fever post chemotherapy. neutropenic fever; started on IV vancomycin and Zosyn. Strep throat is negative. Blood culture, urine culture is negative so far. Chest x-rays negative for pneumonia. ID evaluation Appreciated. Neutropenia; on neutropenic precaution. Got 2 doses of Granix so far. WBC Count improved from 0.3-0.8. Continue IV granix. oncology evaluation appreciated. Upon discharge the patient will follow-up with PMD Dr. Knight.
[2017-10-05] MEDS: Sodium Chloride 0.9% 1,000 ML IV SCH ×2 (12:18→22:00)
--- NOTE | 2017-10-05 12:43 | CP.PCM.PN ---
Subjective - Date & Time of Evaluation Date of Evaluation: 10/05/17 Time of Evaluation: 12:00 - Subjective Subjective: No complaints. Objective - Vital Signs/Intake and Output Vital Signs (last 24 hours): Temp Pulse Resp BP Pulse Ox 98 F 82 19 130/86 99 10/05/17 08:28 10/05/17 08:28 10/05/17 08:28 10/05/17 08:28 10/05/17 08:28 Intake and Output: 10/05/17 10/05/17 06:59 18:59 Intake Total 960 240 Balance 960 240 - Medications Medications: Current Medications Acetaminophen (Tylenol 325mg Tab) 650 mg PO Q4H PRN PRN Reason: Temperature Last Admin: 10/05/17 02:00 Dose: 650 mg Benzocaine/Menthol (Cepacol Sore Throat) 1 patrice MT Q4H PRN PRN Reason: Pain, Mild (1-3) Last Admin: 10/05/17 10:10 Dose: 1 patrice Al Hydrox/Mg Hydrox/Simethicone 30 ml/Diphenhydramine HCl 75 mg/Lidocaine 30 ml 0 ml PO Q2H PRN PRN Reason: Mouth/Throat Pain Last Admin: 10/05/17 10:47 Dose: 30 ml Famotidine (Pepcid) 40 mg PO HS [facility] Last Admin: 10/04/17 22:25 Dose: 40 mg Vancomycin HCl (Vancomycin 1gm) 1 gm in 250 mls @ 167 mls/hr IVPB DAILY [facility] PRN Reason: Protocol Last Admin: 10/05/17 10:05 Dose: 167 mls/hr Sodium Chloride (Sodium Chloride 0.9%) 1,000 mls @ 100 mls/hr IV .Q10H [facility] Last Admin: 10/05/17 12:18 Dose: 100 mls/hr Piperacillin Sod/Tazobactam Sod (Zosyn 3.375 In Ns 100ml) 100 mls @ 200 mls/hr IVPB Q6 [facility] PRN Reason: Protocol Last Admin: 10/05/17 12:17 Dose: 200 mls/hr Insulin Human Lispro (Humalog Med) 0 units SC ACHS [facility] PRN Reason: Protocol Last Admin: 10/05/17 12:20 Dose: 1 units Valsartan (Diovan) 320 mg PO DAILY [facility] Last Admin: 10/05/17 10:05 Dose: 320 mg - Labs Labs: 10/05/17 06:00 10/05/17 06:00 - Head Exam Head Exam: ATRAUMATIC - Eye Exam Eye Exam: Normal appearance - ENT Exam ENT Exam: Mucous Membranes Dry - Respiratory Exam Respiratory Exam: NORMAL BREATHING PATTERN - Cardiovascular Exam Cardiovascular Exam: +S1, +S2 - GI/Abdominal Exam GI & Abdominal Exam: Normal Bowel Sounds - Extremities Exam Extremities Exam: Normal Inspection Assessment and Plan (1) Neutropenic fever Assessment & Plan: ID following, on antibiotics ANC improving with GCSF support neutropenic precautions Status: Acute (2) Pancytopenia Assessment & Plan: secondary to chemotherapy Status: Acute (3) Diffuse large B cell lymphoma Assessment & Plan: stage IV outpatient treatment Status: Acute
--- NOTE | 2017-10-05 20:48 | CP.PCM.PN ---
Subjective - Date & Time of Evaluation Date of Evaluation: 10/05/17 Time of Evaluation: 17:30 - Subjective Subjective: Infectious Disease Follow Up: October 05, 2017 46 yo female presenting with fevers up to 100.7 F at home. Patient had chemotherapy one week ago and a dose of Neupogen. Her only other complaint is a sore throat. Patient states that she was in her normal state of health before the last 12 hours. The patient started chemotherapy in June 2017. She has had her influenza vaccine in February. Patient given Vancomycin and Zosyn for IV antibiotic coverage. Chest X-ray shows no active disease. Signs of mild dehydration. The patient does complain of a little dysuria. Overnight, the patient had fevers up to 100.5 F which is a significant improvement. Afebrile so far today. On Vancomycin and Zosyn still. Cultures remain negative. Objective - Vital Signs/Intake and Output Vital Signs (last 24 hours): Temp Pulse Resp BP Pulse Ox 98.4 F 94 H 20 142/96 H 99 10/05/17 18:04 10/05/17 18:04 10/05/17 18:04 10/05/17 18:04 10/05/17 18:04 Intake and Output: 10/05/17 10/06/17 18:59 06:59 Intake Total 1080 Balance 1080 - Medications Medications: Current Medications Acetaminophen (Tylenol 325mg Tab) 650 mg PO Q4H PRN PRN Reason: Temperature Last Admin: 10/05/17 02:00 Dose: 650 mg Benzocaine/Menthol (Cepacol Sore Throat) 1 patrice MT Q4H PRN PRN Reason: Pain, Mild (1-3) Last Admin: 10/05/17 10:10 Dose: 1 patrice Al Hydrox/Mg Hydrox/Simethicone 30 ml/Diphenhydramine HCl 75 mg/Lidocaine 30 ml 0 ml PO Q2H PRN PRN Reason: Mouth/Throat Pain Last Admin: 10/05/17 10:47 Dose: 30 ml Famotidine (Pepcid) 40 mg PO HS [facility] Last Admin: 10/04/17 22:25 Dose: 40 mg Vancomycin HCl (Vancomycin 1gm) 1 gm in 250 mls @ 167 mls/hr IVPB DAILY [facility] PRN Reason: Protocol Last Admin: 10/05/17 10:05 Dose: 167 mls/hr Sodium Chloride (Sodium Chloride 0.9%) 1,000 mls @ 100 mls/hr IV .Q10H [facility] Last Admin: 10/05/17 12:18 Dose: 100 mls/hr Piperacillin Sod/Tazobactam Sod (Zosyn 3.375 In Ns 100ml) 100 mls @ 200 mls/hr IVPB Q6 [facility] PRN Reason: Protocol Last Admin: 10/05/17 17:09 Dose: 200 mls/hr Insulin Human Lispro (Humalog Med) 0 units SC ACHS L[facility] PRN Reason: Protocol Last Admin: 10/05/17 17:41 Dose: Not Given Valsartan (Diovan) 320 mg PO DAILY [facility] Last Admin: 10/05/17 10:05 Dose: 320 mg - Labs Labs: 10/05/17 06:00 10/05/17 06:00 - Constitutional Appears: Non-toxic, No Acute Distress, Chronically Ill - Head Exam Head Exam: ATRAUMATIC, NORMOCEPHALIC - Eye Exam Eye Exam: EOMI, PERRL Pupil Exam: NORMAL ACCOMODATION, PERRL - ENT Exam ENT Exam: Mucous Membranes Moist, Normal External Ear Exam, TM's Normal Bilaterally - Neck Exam Neck Exam: Full ROM, Normal Inspection - Respiratory Exam Respiratory Exam: Clear to Ausculation Bilateral, NORMAL BREATHING PATTERN. absent: Rales, Rhonchi, Wheezes - Cardiovascular Exam Cardiovascular Exam: REGULAR RHYTHM, RRR, +S1, +S2 - GI/Abdominal Exam GI & Abdominal Exam: Soft, Normal Bowel Sounds. absent: Distended, Tenderness - Extremities Exam Extremities Exam: Full ROM, Normal Inspection - Neurological Exam Neurological Exam: Alert, Awake, CN II-XII Intact, Oriented x3 - Psychiatric Exam Psychiatric exam: Normal Affect, Normal Mood - Skin Skin Exam: Intact, Normal Color Assessment and Plan - Assessment and Plan (Free Text) Assessment: 46 yo AA female with Non-Hodgekin's Lymphoma presenting with sore throat and low grade fevers. The paitent has been started on IV Vancomycin and Zosyn. Allred cultures sent. Administer IV fluids for mild dehydration. Cannot rule out viral infection at this time. Supportive care. Fevers last night up to 100.5 F. Fevers downtrending. Remains neutropenic but the overall values has risen slightly. Check for Influenza. Case discussed with Dr. Jiang and Dr. Knight. Thank you for allowing me to participate in the care of the patient, we will follow with you.
[2017-10-06] MEDS: Piperacillin/Tazobact 3.375 gm 100 ML IVPB SCH ×2 (05:35→13:47)
[2017-10-06 06:40] LABS: BASO # 0.02 K/mm3 (0.0-2.0); BASO % 0.8 % (0.0-3.0); EOS # 0.1 (0.0-0.7); EOS % 3.7 % (1.5-5.0); GRAN # 1.64 (1.4-6.5); GRAN % 66.9 % (50.0-68.0); HEMOGLOBIN 8.6 g/dL (12.0-16.0); LYMPH # 0.2 (1.2-3.4); LYMPH % 9.8 % (22.0-35.0); MEAN CELL VOLUME 79.5 fl (80.0-105.0); MEAN CORPUSCULAR HEMOGLOBIN 25.5 pg (25.0-35.0); MEAN CORPUSCULAR HGB CONC 32.1 g/dl (31.0-37.0); MONO # 0.5 (0.1-0.6); MONO % 18.8 % (1.0-6.0); PLATELET COUNT 106 10^3/uL (120.0-450.0); RBC 3.37 10^6/uL (3.5-6.1); RED CELL DISTRIBUTION WIDTH 14.1 % (11.5-14.5)
[2017-10-06 06:55] LABS: WHITE BLOOD COUNT 2.5 10^3/ul (4.5-11.0)
[2017-10-06 07:29] LABS: ALBUMIN 3.5 g/dL (3.0-4.8); ALT/SGPT 20 U/L (7-56); AST/SGOT 31 U/L (14-36); BLOOD UREA NITROGEN 7 mg/dL (7-21); CALCIUM 8.8 mg/dL (8.4-10.5); GFR AFRICAN-AMERICAN > 60; GFR NON-AFRICAN AMERICAN > 60
[2017-10-06 07:55] VITALS: BP 152/98; RESP 18; TEMP 98.3
[2017-10-06] MEDS: Insulin Lispro (humaLOG) MEDIUM Coverage SC SCH ×2 (08:14→13:48)
[2017-10-06] MEDS: Vancomycin 1gm in NS 250ml 1 GM/250 ML BAG IVPB SCH (10:20)
[2017-10-06] MEDS ORDERED: Sodium Chloride 0.9% 1,000 ML IV SCH (12:57)
--- NOTE | 2017-10-06 15:43 | CP.PCM.DIS ---
<Madai Roth - Last Filed: 10/06/17 15:41> Provider - Provider Date of Admission: 10/03/17 18:35 Attending physician: Jeannette Jiang MD Primary care physician: Yohan Knight MD Consults: Infectious disease- [facility]- [place] Time Spent in preparation of Discharge (in minutes): 35 Hospital Course - Lab Results Lab Results: Most Recent Lab Values WBC 2.5 10^3/ul (4.5-11.0) L* D 10/06/17 06:00 RBC 3.37 10^6/uL (3.5-6.1) L 10/06/17 06:00 Hgb 8.6 g/dL (12.0-16.0) L 10/06/17 06:00 Hct 26.8 % (36.0-48.0) L 10/06/17 06:00 MCV 79.5 fl (80.0-105.0) L 10/06/17 06:00 MCH 25.5 pg (25.0-35.0) 10/06/17 06:00 MCHC 32.1 g/dl (31.0-37.0) 10/06/17 06:00 RDW 14.1 % (11.5-14.5) 10/06/17 06:00 Plt Count 106 10^3/uL (120.0-450.0) L 10/06/17 06:00 MPV 10.7 fl (7.0-11.0) 10/04/17 06:00 Gran % 66.9 % (50.0-68.0) 10/06/17 06:00 Lymph % (Auto) 9.8 % (22.0-35.0) L 10/06/17 06:00 [place] % (Auto) 18.8 % (1.0-6.0) H 10/06/17 06:00 Eos % (Auto) 3.7 % (1.5-5.0) 10/06/17 06:00 Baso % (Auto) 0.8 % (0.0-3.0) 10/06/17 06:00 Gran # 1.64 (1.4-6.5) 10/06/17 06:00 Lymph # (Auto) 0.2 (1.2-3.4) L 10/06/17 06:00 [place] # (Auto) 0.5 (0.1-0.6) 10/06/17 06:00 Eos # (Auto) 0.1 (0.0-0.7) 10/06/17 06:00 Baso # (Auto) 0.02 K/mm3 (0.0-2.0) 10/06/17 06:00 Corrected WBC (Man) Cancelled 10/03/17 16:00 Neutrophils % (Manual) 16 % (50.0-70.0) L 10/05/17 06:00 Band Neutrophils % 8 % (0-2) H 10/05/17 06:00 Lymphocytes % (Manual) 28 % (22.0-35.0) 10/05/17 06:00 Atypical Lymphs % Cancelled 10/03/17 16:00 Monocytes % (Manual) 26 % (1.0-6.0) H 10/05/17 06:00 Eosinophils % (Manual) 22 % (0.0-3.0) H 10/05/17 06:00 Basophils % (Manual) Cancelled 10/03/17 16:00 Metamyelocytes % Cancelled 10/03/17 16:00 Myelocytes % Cancelled 10/03/17 16:00 Promyelocytes % Cancelled 10/03/17 16:00 Nucleated RBC % Cancelled 10/03/17 16:00 Hypersegmented Polys Cancelled 10/03/17 16:00 Immature Lymphocytes Cancelled 10/03/17 16:00 Blast Cells Cancelled 10/03/17 16:00 Smudge Cells Cancelled 10/03/17 16:00 Toxic Granulation Cancelled 10/03/17 16:00 Dohle Bodies Cancelled 10/03/17 16:00 Amor Rods Cancelled 10/03/17 16:00 Platelet Evaluation Low (NORMAL) 10/05/17 06:00 Plt Clumps, EDTA Cancelled 10/03/17 16:00 Large Platelets Cancelled 10/03/17 16:00 Giant Platelets Cancelled 10/03/17 16:00 Polychromasia Cancelled 10/03/17 16:00 Hypochromasia Slight 10/05/17 06:00 Hyperchromasia Cancelled 10/03/17 16:00 Poikilocytosis (manual Cancelled 10/03/17 16:00 Basophilic Stippling Cancelled 10/03/17 16:00 Anisocytosis (manual) Slight 10/05/17 06:00 Microcytosis (manual) Slight 10/05/17 06:00 Macrocytosis (manual) Cancelled 10/03/17 16:00 Spherocytes Cancelled 10/03/17 16:00 Sickle Cells Cancelled 10/03/17 16:00 Target Cells Cancelled 10/03/17 16:00 Tear Drop Cells Cancelled 10/03/17 16:00 Ovalocytes Cancelled 10/03/17 16:00 Stomatocytes Cancelled 10/03/17 16:00 Helmet Cells Cancelled 10/03/17 16:00 Barnhart Rings Cancelled 10/03/17 16:00 Idalia Cells Cancelled 10/03/17 16:00 Acanthocytes (Spur) Cancelled 10/03/17 16:00 Rouleaux Cancelled 10/03/17 16:00 Schistocytes Cancelled 10/03/17 16:00 pO2 35 mm/Hg (30-55) 10/03/17 16:00 VBG pH 7.40 (7.32-7.43) 10/03/17 16:00 VBG pCO2 47.0 (40-60) 10/03/17 16:00 VBG HCO3 29.1 mmol/l (21-28) H 10/03/17 16:00 VBG Total CO2 30.5 mmol.L (22-28) H 10/03/17 16:00 VBG O2 Sat (Calc) 71.1 % (40-65) H 10/03/17 16:00 VBG Base Excess 3.5 mmol/L (0.0-2.0) H 10/03/17 16:00 VBG Potassium 3.4 mmol/L (3.6-5.2) L 10/03/17 16:00 Sodium 135.0 mmol/L (132-148) 10/03/17 16:00 Chloride 100.0 mmol/L (98-107) 10/03/17 16:00 Glucose 107 mg/dl (65-105) H 10/03/17 16:00 Lactate 1.1 mmol/L (0.7-2.1) 10/03/17 16:00 FiO2 21.0 % 10/03/17 16:00 Sodium 144 mmol/L (132-148) 10/06/17 06:00 Potassium 3.8 mmol/L (3.6-5.0) 10/06/17 06:00 Chloride 109 mmol/L (98-107) H 10/06/17 06:00 Carbon Dioxide 25 mmol/L (21-33) 10/06/17 06:00 Anion Gap 14 (10-20) 10/06/17 06:00 BUN 7 mg/dL (7-21) 10/06/17 06:00 Creatinine 0.9 mg/dl (0.7-1.2) 10/06/17 06:00 Est GFR ( Amer) > 60 10/06/17 06:00 Est GFR (Non-Af Amer) > 60 10/06/17 06:00 POC Glucose (mg/dL) 153 mg/dL (65-110) H 10/06/17 11:20 Random Glucose 107 mg/dL (70-110) 10/06/17 06:00 Calcium 8.8 mg/dL (8.4-10.5) 10/06/17 06:00 Phosphorus 3.7 mg/dL (2.5-4.5) 10/06/17 06:00 Magnesium 1.9 mg/dL (1.7-2.2) 10/06/17 06:00 Iron 21 ug/dL (45-180) L 10/03/17 16:00 TIBC 232 ug/dL (265-497) L 10/03/17 16:00 % Saturation 9 % (20-55) L 10/03/17 16:00 Ferritin 386.0 ng/mL 10/03/17 16:00 Total Bilirubin 0.3 mg/dL (0.2-1.3) 10/06/17 06:00 AST 31 U/L (14-36) 10/06/17 06:00 ALT 20 U/L (7-56) 10/06/17 06:00 Alkaline Phosphatase 58 U/L (38-126) 10/06/17 06:00 Total Protein 6.9 g/dL (5.8-8.3) 10/06/17 06:00 Albumin 3.5 g/dL (3.0-4.8) 10/06/17 06:00 Globulin 3.4 gm/dL 10/06/17 06:00 Albumin/Globulin Ratio 1.0 (1.1-1.8) L 10/06/17 06:00 Vitamin B12 898 pg/mL (239-931) 10/03/17 16:00 Folate 9.8 ng/mL 10/03/17 16:00 Venous Blood Potassium 3.4 mmol/L (3.6-5.2) L 10/03/17 16:00 Urine Color Yellow (YELLOW) 10/03/17 15:00 Urine Appearance Clear (CLEAR) 10/03/17 15:00 Urine pH 6.0 (4.7-8.0) 10/03/17 15:00 Ur Specific Rison >= 1.030 (1.005-1.035) 10/03/17 15:00 Urine Protein >=300 mg/dL (<30 mg/dL) H 10/03/17 15:00 Urine Glucose (UA) Negative mg/dL (NEGATIVE) 10/03/17 15:00 Urine Ketones Negative mg/dL (NEGATIVE) 10/03/17 15:00 Urine Blood Negative (NEGATIVE) 10/03/17 15:00 Urine Nitrate Negative (NEGATIVE) 10/03/17 15:00 Urine Bilirubin Negative (NEGATIVE) 10/03/17 15:00 Urine Urobilinogen 1.0 E.U./dL (<1 E.U./dL) H 10/03/17 15:00 Ur Leukocyte Esterase Negative Viri/uL (NEGATIVE) 10/03/17 15:00 Urine RBC 0 - 2 /hpf (0-2) 10/03/17 15:00 Urine WBC 0 - 2 /hpf (0-6) 10/03/17 15:00 Ur Epithelial Cells 3 - 4 /hpf (0-5) 10/03/17 15:00 Urine Bacteria Mod (NEG) 10/03/17 15:00 Grp A Beta Strep Ag Negative (NEGATIVE) 10/03/17 15:18 - Hospital Course Hospital Course: 46 year old female, with past medical history non-hodgkin lymphoma on chemotherapy (last chemo session 1 week ago today), HTN, DM, presents for fever 101.4 this AM. Pt states that she was in her usual state of health until this morning. She woke up with fever 101.4, also had some sore throat, mild headache , denies cough, chills, nausea, vomiting, congestion, rhinorrhea, neck stiffness /rigidity, cough, abdominal pain, diarrhea, hematuria, urinary frequency, melena , hematemesis, hematochezia. Reports mild dysuria. This afternoon, pt then noted a temp 100.7 and let her hemeonc know, who stated to come to ED. Denies recent travel or sick contacts. Pt received neupogen last week. PET scan done in 08/2017 showed no new lesions/masses. In ED, afebrile, BP stable, tachycardic 110s, wbc 0.3, ANC 12x10^3 neutropenic, hgb 10.1, BUN/Cr 15/0.8. Given neupogen , vanco and zosyn. Pt admitted for neutropenic fevers. Pt seen/evaluted by ID with recommendations for Abx. Pt seen/evaluated by oncology with recommendation for GSF until ANC> 500. Pt on contact isolation and neutropenic diet while admitted. Pt without fevers on hospital day 4 with ANC>500. Pt stable, ready for discharge home on Abx as per ID. 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 absent: Distended (obese), Tenderness - Extremities Exam Extremities exam: normal inspection - Neurological Exam Neurological exam: Alert, CN II-XII Intact, Oriented x3 - Psychiatric Exam Psychiatric exam: Normal Affect, Normal Mood - Skin Skin Exam: Dry, Intact, Normal Color, Warm Discharge Plan - Discharge Medications Prescriptions: Cephalexin [Keflex] 500 mg PO TID #30 capsule Mag&Al/Simet/Diphen/Lido [First Magic Mouthwash] 5 ml MM Q6H PRN #1 kit PRN Reason: Sore Throat - Follow Up Plan Condition: STABLE Disposition: HOME/ ROUTINE Instructions: Neutropenia (DC), Neutropenia and Fever in People Being Treated for Cancer Additional Instructions: Please take antibiotics as prescribed. Eat yogurt while taking antibiotics to help prevent yeast infections. Monitor yourself for fevers. Please follow up with Dr. Knight. If you have a recurrence of symptoms, please return to hospital. Referrals: Yohan Knight MD [Primary Care Provider] - <Jeannette Jiang - Last Filed: 10/06/17 16:02> Provider - Provider Date of Admission: 10/03/17 18:35 Attending physician: Jeannette Jiang MD Primary care physician: Yohan Knight MD Hospital Course - Lab Results Lab Results: Most Recent Lab Values WBC 2.5 10^3/ul (4.5-11.0) L* D 10/06/17 06:00 RBC 3.37 10^6/uL (3.5-6.1) L 10/06/17 06:00 Hgb 8.6 g/dL (12.0-16.0) L 10/06/17 06:00 Hct 26.8 % (36.0-48.0) L 10/06/17 06:00 MCV 79.5 fl (80.0-105.0) L 10/06/17 06:00 MCH 25.5 pg (25.0-35.0) 10/06/17 06:00 MCHC 32.1 g/dl (31.0-37.0) 10/06/17 06:00 RDW 14.1 % (11.5-14.5) 10/06/17 06:00 Plt Count 106 10^3/uL (120.0-450.0) L 10/06/17 06:00 MPV 10.7 fl (7.0-11.0) 10/04/17 06:00 Gran % 66.9 % (50.0-68.0) 10/06/17 06:00 Lymph % (Auto) 9.8 % (22.0-35.0) L 10/06/17 06:00 [place] % (Auto) 18.8 % (1.0-6.0) H 10/06/17 06:00 Eos % (Auto) 3.7 % (1.5-5.0) 10/06/17 06:00 Baso % (Auto) 0.8 % (0.0-3.0) 10/06/17 06:00 Gran # 1.64 (1.4-6.5) 10/06/17 06:00 Lymph # (Auto) 0.2 (1.2-3.4) L 10/06/17 06:00 [place] # (Auto) 0.5 (0.1-0.6) 10/06/17 06:00 Eos # (Auto) 0.1 (0.0-0.7) 10/06/17 06:00 Baso # (Auto) 0.02 K/mm3 (0.0-2.0) 10/06/17 06:00 Corrected WBC (Man) Cancelled 10/03/17 16:00 Neutrophils % (Manual) 16 % (50.0-70.0) L 10/05/17 06:00 Band Neutrophils % 8 % (0-2) H 10/05/17 06:00 Lymphocytes % (Manual) 28 % (22.0-35.0) 10/05/17 06:00 Atypical Lymphs % Cancelled 10/03/17 16:00 Monocytes % (Manual) 26 % (1.0-6.0) H 10/05/17 06:00 Eosinophils % (Manual) 22 % (0.0-3.0) H 10/05/17 06:00 Basophils % (Manual) Cancelled 10/03/17 16:00 Metamyelocytes % Cancelled 10/03/17 16:00 Myelocytes % Cancelled 10/03/17 16:00 Promyelocytes % Cancelled 10/03/17 16:00 Nucleated RBC % Cancelled 10/03/17 16:00 Hypersegmented Polys Cancelled 10/03/17 16:00 Immature Lymphocytes Cancelled 10/03/17 16:00 Blast Cells Cancelled 10/03/17 16:00 Smudge Cells Cancelled 10/03/17 16:00 Toxic Granulation Cancelled 10/03/17 16:00 Dohle Bodies Cancelled 10/03/17 16:00 Amor Rods Cancelled 10/03/17 16:00 Platelet Evaluation Low (NORMAL) 10/05/17 06:00 Plt Clumps, EDTA Cancelled 10/03/17 16:00 Large Platelets Cancelled 10/03/17 16:00 Giant Platelets Cancelled 10/03/17 16:00 Polychromasia Cancelled 10/03/17 16:00 Hypochromasia Slight 10/05/17 06:00 Hyperchromasia Cancelled 10/03/17 16:00 Poikilocytosis (manual Cancelled 10/03/17 16:00 Basophilic Stippling Cancelled 10/03/17 16:00 Anisocytosis (manual) Slight 10/05/17 06:00 Microcytosis (manual) Slight 10/05/17 06:00 Macrocytosis (manual) Cancelled 10/03/17 16:00 Spherocytes Cancelled 10/03/17 16:00 Sickle Cells Cancelled 10/03/17 16:00 Target Cells Cancelled 10/03/17 16:00 Tear Drop Cells Cancelled 10/03/17 16:00 Ovalocytes Cancelled 10/03/17 16:00 Stomatocytes Cancelled 10/03/17 16:00 Helmet Cells Cancelled 10/03/17 16:00 Barnhart Rings Cancelled 10/03/17 16:00 Idalia Cells Cancelled 10/03/17 16:00 Acanthocytes (Spur) Cancelled 10/03/17 16:00 Rouleaux Cancelled 10/03/17 16:00 Schistocytes Cancelled 10/03/17 16:00 pO2 35 mm/Hg (30-55) 10/03/17 16:00 VBG pH 7.40 (7.32-7.43) 10/03/17 16:00 VBG pCO2 47.0 (40-60) 10/03/17 16:00 VBG HCO3 29.1 mmol/l (21-28) H 10/03/17 16:00 VBG Total CO2 30.5 mmol.L (22-28) H 10/03/17 16:00 VBG O2 Sat (Calc) 71.1 % (40-65) H 10/03/17 16:00 VBG Base Excess 3.5 mmol/L (0.0-2.0) H 10/03/17 16:00 VBG Potassium 3.4 mmol/L (3.6-5.2) L 10/03/17 16:00 Sodium 135.0 mmol/L (132-148) 10/03/17 16:00 Chloride 100.0 mmol/L (98-107) 10/03/17 16:00 Glucose 107 mg/dl (65-105) H 10/03/17 16:00 Lactate 1.1 mmol/L (0.7-2.1) 10/03/17 16:00 FiO2 21.0 % 10/03/17 16:00 Sodium 144 mmol/L (132-148) 10/06/17 06:00 Potassium 3.8 mmol/L (3.6-5.0) 10/06/17 06:00 Chloride 109 mmol/L (98-107) H 10/06/17 06:00 Carbon Dioxide 25 mmol/L (21-33) 10/06/17 06:00 Anion Gap 14 (10-20) 10/06/17 06:00 BUN 7 mg/dL (7-21) 10/06/17 06:00 Creatinine 0.9 mg/dl (0.7-1.2) 10/06/17 06:00 Est GFR ( Amer) > 60 10/06/17 06:00 Est GFR (Non-Af Amer) > 60 10/06/17 06:00 POC Glucose (mg/dL) 153 mg/dL (65-110) H 10/06/17 11:20 Random Glucose 107 mg/dL (70-110) 10/06/17 06:00 Calcium 8.8 mg/dL (8.4-10.5) 10/06/17 06:00 Phosphorus 3.7 mg/dL (2.5-4.5) 10/06/17 06:00 Magnesium 1.9 mg/dL (1.7-2.2) 10/06/17 06:00 Iron 21 ug/dL (45-180) L 10/03/17 16:00 TIBC 232 ug/dL (265-497) L 10/03/17 16:00 % Saturation 9 % (20-55) L 10/03/17 16:00 Ferritin 386.0 ng/mL 10/03/17 16:00 Total Bilirubin 0.3 mg/dL (0.2-1.3) 10/06/17 06:00 AST 31 U/L (14-36) 10/06/17 06:00 ALT 20 U/L (7-56) 10/06/17 06:00 Alkaline Phosphatase 58 U/L (38-126) 10/06/17 06:00 Total Protein 6.9 g/dL (5.8-8.3) 10/06/17 06:00 Albumin 3.5 g/dL (3.0-4.8) 10/06/17 06:00 Globulin 3.4 gm/dL 10/06/17 06:00 Albumin/Globulin Ratio 1.0 (1.1-1.8) L 10/06/17 06:00 Vitamin B12 898 pg/mL (239-931) 10/03/17 16:00 Folate 9.8 ng/mL 10/03/17 16:00 Venous Blood Potassium 3.4 mmol/L (3.6-5.2) L 10/03/17 16:00 Urine Color Yellow (YELLOW) 10/03/17 15:00 Urine Appearance Clear (CLEAR) 10/03/17 15:00 Urine pH 6.0 (4.7-8.0) 10/03/17 15:00 Ur Specific Rison >= 1.030 (1.005-1.035) 10/03/17 15:00 Urine Protein >=300 mg/dL (<30 mg/dL) H 10/03/17 15:00 Urine Glucose (UA) Negative mg/dL (NEGATIVE) 10/03/17 15:00 Urine Ketones Negative mg/dL (NEGATIVE) 10/03/17 15:00 Urine Blood Negative (NEGATIVE) 10/03/17 15:00 Urine Nitrate Negative (NEGATIVE) 10/03/17 15:00 Urine Bilirubin Negative (NEGATIVE) 10/03/17 15:00 Urine Urobilinogen 1.0 E.U./dL (<1 E.U./dL) H 10/03/17 15:00 Ur Leukocyte Esterase Negative Viri/uL (NEGATIVE) 10/03/17 15:00 Urine RBC 0 - 2 /hpf (0-2) 10/03/17 15:00 Urine WBC 0 - 2 /hpf (0-6) 10/03/17 15:00 Ur Epithelial Cells 3 - 4 /hpf (0-5) 10/03/17 15:00 Urine Bacteria Mod (NEG) 10/03/17 15:00 Grp A Beta Strep Ag Negative (NEGATIVE) 05/14/18 15:18 Attending/Attestation - Attestation I have personally seen and examined this patient.: Yes I have fully participated in the care of the patient.: Yes I have reviewed all pertinent clinical information, including history, physical exam and plan: Yes Notes (Text): 10/06/17 15:51 attending note; Patient seen and examined with resident. Complaining of mild sore throat. Patient is afebrile and nontoxic. Patient is a 46 year old female, with past medical history non-hodgkin lymphoma on chemotherapy , HTN, DM 's admitted with neutropenic fever post chemotherapy. neutropenic fever; treated with IV vancomycin and Zosyn. Strep throat is negative. Blood culture, urine culture is negative so far. Chest x-rays negative for pneumonia. ID evaluation Appreciated. Will be discharged home with po Keflex. Neutropenia; on neutropenic precaution. Got 3 doses of Granix so far. WBC Count improved from 0.3-2.5. oncology evaluation appreciated. Discharge home today. Upon discharge the patient will follow-up with PMD Dr. Knight. 10/06/17 16:00 10/06/17 16:02
[2017-10-06 16:40] VITALS: PULSE 99
--- NOTE | 2017-10-06 16:58 | CP.PCM.PN ---
Subjective - Date & Time of Evaluation Date of Evaluation: 10/06/17 Time of Evaluation: 15:00 - Subjective Subjective: Feeling better Objective - Vital Signs/Intake and Output Vital Signs (last 24 hours): Temp Pulse Resp BP Pulse Ox 98.3 F 99 H 18 152/98 H 99 10/06/17 07:54 10/06/17 14:00 10/06/17 07:54 10/06/17 07:54 10/06/17 07:54 Intake and Output: 10/06/17 10/06/17 06:59 18:59 Intake Total 1080 1020 Output Total 1 Balance 1080 1019 - Medications Medications: Current Medications Acetaminophen (Tylenol 325mg Tab) 650 mg PO Q4H PRN PRN Reason: Temperature Last Admin: 10/06/17 13:54 Dose: 650 mg Benzocaine/Menthol (Cepacol Sore Throat) 1 patrice MT Q4H PRN PRN Reason: Pain, Mild (1-3) Last Admin: 10/05/17 10:10 Dose: 1 patrice Al Hydrox/Mg Hydrox/Simethicone 30 ml/Diphenhydramine HCl 75 mg/Lidocaine 30 ml 0 ml PO Q2H PRN PRN Reason: Mouth/Throat Pain Last Admin: 10/05/17 10:47 Dose: 30 ml Famotidine (Pepcid) 40 mg PO HS LAVINIA Last Admin: 10/05/17 22:42 Dose: 40 mg Vancomycin HCl (Vancomycin 1gm) 1 gm in 250 mls @ 167 mls/hr IVPB DAILY LAVINIA PRN Reason: Protocol Last Admin: 10/06/17 10:20 Dose: 167 mls/hr Piperacillin Sod/Tazobactam Sod (Zosyn 3.375 In Ns 100ml) 100 mls @ 200 mls/hr IVPB Q6 LAVINIA PRN Reason: Protocol Last Admin: 10/06/17 13:47 Dose: 200 mls/hr Sodium Chloride (Sodium Chloride 0.9%) 1,000 mls @ 50 mls/hr IV .Q20H LAVINIA Last Admin: 10/06/17 13:48 Dose: Not Given Insulin Human Lispro (Humalog Med) 0 units SC ACHS LAVINIA PRN Reason: Protocol Last Admin: 10/06/17 13:48 Dose: 1 units Valsartan (Diovan) 320 mg PO DAILY [facility] Last Admin: 10/06/17 10:20 Dose: 320 mg - Labs Labs: 10/06/17 06:00 10/06/17 06:00 - Head Exam Head Exam: ATRAUMATIC - Eye Exam Eye Exam: Normal appearance - ENT Exam ENT Exam: Mucous Membranes Dry - Respiratory Exam Respiratory Exam: NORMAL BREATHING PATTERN - Cardiovascular Exam Cardiovascular Exam: +S1, +S2 - GI/Abdominal Exam GI & Abdominal Exam: Normal Bowel Sounds Assessment and Plan (1) Pancytopenia Assessment & Plan: neutropenia resolving s/p GCSF outpatient f/u Status: Acute (2) Diffuse large B cell lymphoma Assessment & Plan: outpatient treatment Status: Acute
--- NOTE | 2017-10-06 18:31 | CP.PCM.PN ---
Subjective - Date & Time of Evaluation Date of Evaluation: 10/06/17 Time of Evaluation: 15:00 - Subjective Subjective: Infectious Disease Follow Up: October 06, 2017 46 yo female presenting with fevers up to 100.7 F at home. Patient had chemotherapy one week ago and a dose of Neupogen. Her only other complaint is a sore throat. Patient states that she was in her normal state of health before the last 12 hours. The patient started chemotherapy in June 2017. She has had her influenza vaccine in February. Patient given Vancomycin and Zosyn for IV antibiotic coverage. Chest X-ray shows no active disease. Signs of mild dehydration. The patient does complain of a little dysuria. Overnight, the patient was afebrile. Afebrile so far today. On Vancomycin and Zosyn still. Cultures remain negative. Objective - Vital Signs/Intake and Output Vital Signs (last 24 hours): Temp Pulse Resp BP Pulse Ox 98.3 F 99 H 18 152/98 H 99 10/06/17 07:54 10/06/17 14:00 10/06/17 07:54 10/06/17 07:54 10/06/17 07:54 Intake and Output: 10/06/17 10/06/17 06:59 18:59 Intake Total 1080 1020 Output Total 1 Balance 1080 1019 - Labs Labs: 10/06/17 06:00 10/06/17 06:00 - Constitutional Appears: Non-toxic, No Acute Distress, Chronically Ill - Head Exam Head Exam: ATRAUMATIC, NORMOCEPHALIC - Eye Exam Eye Exam: EOMI, PERRL Pupil Exam: NORMAL ACCOMODATION, PERRL - ENT Exam ENT Exam: Mucous Membranes Moist, Normal External Ear Exam, TM's Normal Bilaterally - Neck Exam Neck Exam: Full ROM, Normal Inspection - Respiratory Exam Respiratory Exam: Clear to Ausculation Bilateral, NORMAL BREATHING PATTERN. absent: Rales, Rhonchi, Wheezes - Cardiovascular Exam Cardiovascular Exam: REGULAR RHYTHM, RRR, +S1, +S2 - GI/Abdominal Exam GI & Abdominal Exam: Soft, Normal Bowel Sounds. absent: Distended, Tenderness - Extremities Exam Extremities Exam: Full ROM, Normal Inspection - Neurological Exam Neurological Exam: Alert, Awake, CN II-XII Intact, Oriented x3 - Psychiatric Exam Psychiatric exam: Normal Affect, Normal Mood - Skin Skin Exam: Intact, Normal Color Assessment and Plan - Assessment and Plan (Free Text) Assessment: 46 yo AA female with Non-Hodgekin's Lymphoma presenting with sore throat and low grade fevers. The paitent has been started on IV Vancomycin and Zosyn. Allred cultures sent. Administer IV fluids for mild dehydration. Cannot rule out viral infection at this time. Supportive care. Afebrile last night. Fevers appear resolved. Neutropenia resolving. On discharge, can consider use of Keflex 500 mg TID for 7-10 days. Case discussed with Dr. Jiang and Dr. Knight. Thank you for allowing me to participate in the care of the patient, we will follow with you.
== END 2017-10-06 17:23 | disposition home or self-care (01) | DRG 809 ==
LOC: ED 12:35 → ERH 18:35 → 3RNO 20:14
PROVIDERS: ADMIT Internal Medicine; ATTEND Internal Medicine
DX: D70.9 Neutropenia, unspecified (principal); C83.30 Diffuse large B-cell lymphoma, unspecified site; R50.81 Fever presenting with conditions classified elsewhere; D50.9 Iron deficiency anemia, unspecified; E11.22 Type 2 diabetes mellitus with diabetic chronic kidney disease; I12.9 Hypertensive chronic kidney disease with stage 1 through stage 4 chronic kidney disease, or unspecified chronic kidney disease; N18.9 Chronic kidney disease, unspecified; E78.5 Hyperlipidemia, unspecified; E86.0 Dehydration; G47.00 Insomnia, unspecified; J45.909 Unspecified asthma, uncomplicated; K21.9 Gastro-esophageal reflux disease without esophagitis; T45.1X5A Adverse effect of antineoplastic and immunosuppressive drugs, initial encounter; Z78.9 Other specified health status; Z79.84 Long term (current) use of oral hypoglycemic drugs; Z87.440 Personal history of urinary (tract) infections; Z87.442 Personal history of urinary calculi; R30.0 Dysuria